=== PATIENT | male | born 1965 | race Caucasian/White ===

== ENCOUNTER → 2016-08-17 | Outpatient (CLI) | payer OTHER ==
[~2016-08-17] MED LIST: CHOL100010 PO; CITA20TA4 PO; CNT PO; QSTP PO
[2016-08-17 17:19] LABS: BLOOD UREA NITROGEN 6 mg/dl (7-18); BUN/CREATININE RATIO 7.5 (10-20); CALCIUM 8.3 mg/dl (8.5-10.1); CARBON DIOXIDE 27 mmol/L (21-32); CHLORIDE 104 mmol/L (98-107); CREATININE 0.84 mg/dl (0.60-1.40); GLUCOSE 81 mg/dl (70-99); POTASSIUM 3.8 mmol/L (3.5-5.1); SODIUM 139 mmol/L (136-145); URIC ACID 6.2 mg/dl (2.6-7.2)
== END | disposition home or self-care (01) ==
LOC: C.LABBFT 16:19
PROVIDERS: ATTEND Internal Medicine
DX: M10.9 Gout, unspecified (principal)

== ENCOUNTER 2020-01-24 17:47 | Inpatient (IN) ==
--- OUTSIDE RECORDS SUMMARY | 2020-01-24 17:49 | External Medical Summary | Continuity of Care Document ---
:1965 Author Name Yoselin Gallego Address Unavailable Unavailable , Care Team Providers Name Role Phone Rosalind Benton PA-C Unavailable [email or web address].D. Unavailable Unavailable ALYSSA DO, M Unavailable Unavailable Unavailable Unavailable Unavailable Problems Acute postoperative pain (338.18) (G89.18) Hypertension (401.9) (I10) Hypokalemia (276.8) (E87.6) Colonic obstruction (560.9) (K56.609) Leukocytosis (288.60) (D72.829) Diarrhea (787.91) (R19.7) Cough (786.2) (R05) Nausea (787.02) (R11.0) Abnormal blood chemistry (790.6) (R79.9) Colonic diverticular abscess (562.11) (K57.20) Abdominal pain (789.00) (R10.9) Depression (311) (F32.9) Protein malnutrition (260) (E46) Coagulopathy (286.9) (D68.9) Fatty liver (571.8) (K76.0) Anxiety (300.00) (F41.9) Vitamin D deficiency (268.9) (E55.9) Fistula (686.9) (L98.8) Pulmonary embolism (415.19) (I26.99) Cellulitis, abdominal wall (682.2) (L03.311) 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 Refills: 0 Procedures History of Colon Surgery Status: Complet ed History of Tonsillectomy Status: Complet ed Immunizations Immunizations not documented Family History Unknown Family Member Family history of diabetes mellitus (V18.0) Status: Active Comments: Family History (Z83.3) Family history of prostate cancer (V16.42) Status: Active Comments: Family History (Z80.42) Social History - Smoking Status Never smoked tobacco Plan of Treatment Planned Observations Planned Goals not documented Results No Known Results Results not documented
--- OUTSIDE RECORDS SUMMARY | 2020-01-24 17:49 | External Medical Summary | Continuity of Care Document ---
:1965 Author Name Yoselin Gallego Address Unavailable Unavailable , Care Team Providers Name Role Phone Rosalind Benton PA-C Unavailable [email or web address] M.D. Unavailable Unavailable ALYSSA DO M Unavailable Unavailable Unavailable Unavailable Unavailable Problems [...] Reactions No Known Drug Allergies (Allergy) Medications Multi Vitamin/Minerals TABS; TAKE 1 TABLET DAILY. Refills: 0 Indomethacin 25 MG Oral Capsule; TAKE 1 CAPSULE 3 time s daily PRN TAMMY Benton Quantity: 21 Refills: 0 Procedures History of Colon Surgery [...]
[2020-01-24] MEDS ORDERED: SODIUM CHLORIDE 0.9% 1000ML 1,000 ML IV ONE (18:18)
[2020-01-24] MEDS ORDERED: ONDANSETRON INJ 2 MG/ML 2 ML VIAL IV STA (18:18)
[2020-01-24] MEDS ORDERED: PROMETHAZINE 6.25 MG/50.25 ML BAG IV STA (18:18)
[2020-01-24] MEDS ORDERED: chlordiazePOXIDE HCl 25 MG CAP PO ONE (18:18)
[2020-01-24] MEDS ORDERED: LORazepam 1 MG/2 ML VIAL IV STA (18:18)
[2020-01-24] MEDS ORDERED: MULTI-VITAMIN INFUSION 10 ML, THIAMINE HCL 100 MG, FOLIC ACID 1 MG in SODIUM CHLORIDE 0... IV ONE (18:18)
[2020-01-24] MEDS ORDERED: cefTRIAXone SODIUM 1,000 MG/50 ML BAG IV STA (18:18)
--- NOTE | 2020-01-24 18:26 | Emergency Department Note ---
Impression & Plan Sepsis, Tachycardia, Acute dehydration, Vomiting, Alcohol withdrawal ED Provider Note NAME: CONCETTA RODRIGUES AGE: 54 SEX: M : 1965 ARRIVES VIA: Walk-In INFORMANT: [Patient] ED PROVIDER(S): [Galo Thompson MD] CHIEF COMPLAINT: Fever and weakness HISTORY OF PRESENT ILLNESS: The patient is a 54-year-old male who presents to the ER with 3 days of fever and flulike symptoms. Patient states that 2 weeks ago, he was bitten by a tick. Patient states that when he began to have flulike symptoms 3 days ago, he thought he may have Lyme. He went to urgent care yesterday and they did start doxycycline. His first dose was this morning. The patient states that he has fever, chills, shakes. He feels achy all over. He does not have any shortness of breath although he has a subtle cough. He has a colostomy and he has not noticed any diarrhea. He has had nausea and vomiting the last few days. He feels dehydrated. Of note, the patient has not had any alcohol for 3 days, he typically drinks about 8 beers a day. He thinks he may be going into some alcohol withdrawal. Of note, no known coronavirus exposures. REVIEW OF SYSTEMS: See HPI for pertinent positives and negatives. A total of ten systems were reviewed and were otherwise negative. PMHx/PSHx: See Below SOCIAL HISTORY: See Below. PHYSICAL EXAM: GENERAL: Patient is in mild distress, dry heaving, shaking. HEENT: No acute trauma, normocephalic atraumatic, mucous membranes dry, no nasal congestion, no scleral icterus. NECK: No stridor, no adenopathy, no meningismus, trachea is midline. LUNGS: Clear to auscultation bilaterally, no wheeze, no rhonchi, breath sounds equal. HEART: Tachycardic, regular rhythm, no murmurs. ABDOMEN: Soft, nontender, bowel sounds positive, no hernias, no peritonitis. Colostomy in the left mid abdomen. EXTREMITIES: No cyanosis or edema, full range of motion of all the joints without pain or difficulty, no signs for acute trauma. NEUROLOGIC: Oriented x 3, no acute motor or sensory deficits, no focal weakness. Trembling and shaking. SKIN: No rash, no jaundice, no diaphoresis. Groin: No scrotal erythema or rash. DIFFERENTIAL DIAGNOSIS: Sepsis, UTI, pneumonia, metabolic, electrolyte abnormalities, coronavirus, alcohol withdrawal, dehydration, cardiac sources, Lyme disease, anaplasmosis, intracerebral event, toxicologic, neurologic, as well as other pathologies. EMERGENCY DEPARTMENT COURSE/PROCEDURES: ECG: Indication was weakness and tachycardia. The EKG shows a sinus tachycardia. The rate is 115. There is no ST elevation, no PACs. There is some artifact present. The QTc is 431. Continuous Cardiac Monitoring: An order was placed for continuous cardiac monitoring. The monitor shows a rate of 112 with sinus tachycardia. Critical Care Note: I have personally spent greater than 52 minutes of critical care time in the direct management of this patient. This includes bedside care, interpretation of diagnostic studies, and testing, discussion with consultants, patient, and family members, and other required patient management activities. This 52 minutes is in excess of all separately billable procedures. MEDICAL DECISION MAKING: There is no leukocytosis or concerning anemia. The patient has a normal platelet count. INR slightly elevated at 1.2. There is no significant electrolyte abnormality or kidney failure. Lactic acid level is elevated at over 2, this is consistent with dehydration and/or infection. Procalcitonin level was elevated, consistent with infection. The patient does have liver enzyme elevations, likely from his alcohol abuse. The bilirubin was not elevated. EKG showed a sinus tachycardia, no acute ischemia. Cardiac enzyme testing x1 is not consistent with acute cardiac injury. Urinalysis does not show any evidence for infection, contamination was seen. Coronavirus test was performed and was negative. Lyme disease testing returned negative. Chest from did not show pneumonia or CHF. The patient presents tachycardic, shivery, off balance, weak, dehydrated and in apparent alcohol withdrawal. The patient was aggressively managed. He received IV saline for hydration. He was given IV saline mixed with multivitamins, thiamine and folate. He was given IV Phenergan for nausea. Patient received IV Zofran for nausea. He was given IV Ativan to help with his withdrawal. He was given a dose of oral Librium. He received IV ceftriaxone as empiric antibiotic coverage. The patient does seem to be improved. I discussed my results with him. I do think given all his findings, given his alcohol withdrawal, a hospital stay is warranted. The patient does meet criteria for sepsis. The source for the fever is currently unclear. Further work-up and care is required. The on-call hospitalist has been consulted. Case management has been involved. Past Med/Surg History Medical History Colonic obstruction (Acute 07/26/14) Pulmonary emboli (Acute) Social History Preferred Language: Icelandic Communication Ability: Effective Community Relations Officer Required: No Beliefs That Will Affect Care: None Current Living Situation: Spouse and Family Other Information That Helps Us Care for You: No Feels Safe at Home: Yes Safety Concerns: Feels Safe At This Time Smoking Status: Never smoker Hx Alcohol Use: Yes Alcohol type: beer Hx Substance Use: No Allergies Allergies Allergy/AdvReac Type Severity Reaction Status Date / Time No Known Allergies Allergy Verified 01/24/20 19:13 Home Meds Home Medications Medication Instructions Recorded Confirmed doxycycline hyclate 100 mg PO BID 01/24/20 01/24/20 Results & Data (ED) Vital Signs Vital Signs - 24 hr 01/24/20 17:51 01/24/20 18:04 01/24/20 18:45 Temperature 37.9 C H Temperature Source Oral Pulse Rate 121 H Pulse Rate from SpO2 Sensor Respiratory Rate 26 H 25 H Blood Pressure 117/74 118/87 Blood Pressure Mean 88 94 Blood Pressure Position Sitting Pulse Oximetry 96 95 97 Oxygen Delivery Method Room Air Room Air Room Air Sepsis Recent Fever Within 48 Hours No Sepsis Action Taken by Nursing No Action Required 01/24/20 18:58 01/24/20 19:00 01/24/20 19:02 Temperature Temperature Source Pulse Rate 117 H 116 H 113 H Pulse Rate from SpO2 Sensor Respiratory Rate 26 H 28 H 29 H Blood Pressure 100/78 116/78 Blood Pressure Mean 85 82 Blood Pressure Position Pulse Oximetry 91 95 91 Oxygen Delivery Method Sepsis Recent Fever Within 48 Hours Sepsis Action Taken by Nursing 01/24/20 19:13 01/24/20 19:15 01/24/20 19:16 Temperature Temperature Source Pulse Rate 113 H 112 H 121 H Pulse Rate from SpO2 Sensor 113 H 112 H 123 H Respiratory Rate 26 H 28 H 25 H Blood Pressure 118/79 114/78 Blood Pressure Mean 83 83 Blood Pressure Position Pulse Oximetry 98 96 91 Oxygen Delivery Method Sepsis Recent Fever Within 48 Hours Sepsis Action Taken by Nursing 01/24/20 19:30 01/24/20 19:31 01/24/20 19:45 Temperature Temperature Source Pulse Rate 116 H 110 H 111 H Pulse Rate from SpO2 Sensor 116 H 111 H 112 H Respiratory Rate 24 27 H 30 H Blood Pressure 120/85 119/83 Blood Pressure Mean 87 93 Blood Pressure Position Pulse Oximetry 96 99 98 Oxygen Delivery Method Sepsis Recent Fever Within 48 Hours Sepsis Action Taken by Nursing 01/24/20 20:00 01/24/20 20:15 01/24/20 20:30 Temperature Temperature Source Pulse Rate 116 H 107 H 106 H Pulse Rate from SpO2 Sensor 117 H 107 H 107 H Respiratory Rate 21 27 H 25 H Blood Pressure 118/77 100/66 104/67 Blood Pressure Mean 85 83 79 Blood Pressure Position Pulse Oximetry 98 97 96 Oxygen Delivery Method Sepsis Recent Fever Within 48 Hours Sepsis Action Taken by Nursing 01/24/20 20:31 01/24/20 20:45 01/24/20 21:00 Temperature Temperature Source Pulse Rate 107 H 104 H 105 H Pulse Rate from SpO2 Sensor 106 H 104 H 106 H Respiratory Rate 26 H 28 H 21 Blood Pressure 103/66 91/65 L Blood Pressure Mean 75 79 Blood Pressure Position Pulse Oximetry 95 95 95 Oxygen Delivery Method Sepsis Recent Fever Within 48 Hours Sepsis Action Taken by Nursing 01/24/20 21:15 01/24/20 21:30 01/24/20 21:45 Temperature Temperature Source Pulse Rate 97 H 125 H 98 H Pulse Rate from SpO2 Sensor 98 H 98 H Respiratory Rate 25 H 21 24 Blood Pressure 102/64 105/87 95/67 L Blood Pressure Mean 73 90 73 Blood Pressure Position Pulse Oximetry 96 95 Oxygen Delivery Method Sepsis Recent Fever Within 48 Hours Sepsis Action Taken by Care Home Medications Current Medication List: was personally reviewed by [place] Laboratory Data Attestation: I reviewed the patient's lab results. Result diagrams: 01/24/20 18:50 01/24/20 18:50 Lab Results 01/24/20 01/24/20 01/24/20 Range/Units 18:00 18:50 18:50 WBC 6.98 (4.8-10.8) K/uL RBC 4.82 (4.7-6.1) M/uL Hgb 16.3 (14.0-18.0) g/dL Hct 47.5 (42-52) % MCV 98.5 (80-100) fL MCH 33.8 (25-34) pg MCHC 34.3 (32-36) g/dL RDW Std Deviation 55.9 H (36.4-46.3) fL RDW Coeff of [place] 15.4 H (11.5-14.5) % Plt Count 217 (130-400) K/uL MPV 10.2 (7.4-10.4) fL Immature Gran % (Auto) 0.4 % Neut % (Auto) 85.0 % Lymph % (Auto) 10.0 % [place] % (Auto) 3.9 % Eos % (Auto) 0.0 % Baso % (Auto) 0.7 % Immature Gran # (Auto) 0.03 H (0.00-0.02) K/uL Neut # (Auto) 5.93 (1.4-6.5) K/uL Lymph # (Auto) 0.70 L (1.2-3.4) K/uL [place] # (Auto) 0.27 (0.11-0.59) K/uL Eos # (Auto) 0.00 (0-0.5) K/uL Baso # (Auto) 0.05 (0-0.2) K/uL PT 12.3 H (9.0-12.0) Seconds INR 1.2 H (0.9-1.1) APTT 27.0 (21.0-31.0) Seconds PTT Ratio 1.0 Sodium (136-145) mmol/L Potassium (3.5-5.1) mmol/L Chloride (98-107) mmol/L Carbon Dioxide (21-32) mmol/L Anion Gap (3-11) BUN (7-18) mg/dl Creatinine (0.6-1.4) mg/dl Est Cr Clr Drug Dosing ml/min Est GFR ( Amer) Est GFR (Non-Af Amer) BUN/Creatinine Ratio (10-20) Glucose (70-99) mg/dl Lactate (0.4-2.0) mmol/L Calcium (8.5-10.1) mg/dl Magnesium (1.8-2.4) mg/dl Total Bilirubin (0.2-1) mg/dl AST (15-37) U/L ALT (12-78) U/L Alkaline Phosphatase (45-117) U/L Troponin I (0-0.045) ng/ml Total Protein (6.4-8.2) gm/dl Albumin (3.4-5.0) gm/dl Globulin (2.5-4.0) gm/dl Albumin/Globulin Ratio (0.9-2) Procalcitonin (0-0.5) ng/ml Urine Color Dark Yellow Urine Appearance Clear (Clear) Urine pH 7.0 (4.5-7.5) Ur Specific [place] 1.023 (1.000-1.030) Urine Protein 2+ H (Negative) Urine Glucose (UA) Negative (Negative) Urine Ketones 1+ H (Negative) Urine Blood 2+ H (Negative) Urine Nitrite Negative (Negative) Urine Bilirubin 1+ H (Negative) Urine Urobilinogen Positive H (Negative) Ur Leukocyte Esterase Trace H (Negative) Urine WBC (Auto) 1-5 (0-5) /hpf Urine RBC (Auto) 10-30 H (0-4) /hpf U Hyaline Cast (Auto) 5-10 H (0-5) /lpf U Epithel Cells (Auto) >30 H (0-5) /lpf Urine Bacteria (Auto) Negative (Negative) Ethyl Alcohol mg/dL (0-3) mg/dl Lyme Disease IgG Ab (Negative) Lyme Disease IgM Ab (Negative) COVID-19 PCR (Negative) Hepatitis C Ab Screen (Neg) 01/24/20 01/24/20 01/24/20 Range/Units 18:50 18:50 18:50 WBC (4.8-10.8) K/uL RBC (4.7-6.1) M/uL Hgb (14.0-18.0) g/dL Hct (42-52) % MCV (80-100) fL MCH (25-34) pg MCHC (32-36) g/dL RDW Std Deviation (36.4-46.3) fL RDW Coeff of [place]ubia (11.5-14.5) % Plt Count (130-400) K/uL MPV (7.4-10.4) fL Immature Gran % (Auto) % Neut % (Auto) % Lymph % (Auto) % [place] % (Auto) % Eos % (Auto) % Baso % (Auto) % Immature Gran # (Auto) (0.00-0.02) K/uL Neut # (Auto) (1.4-6.5) K/uL Lymph # (Auto) (1.2-3.4) K/uL [place] # (Auto) (0.11-0.59) K/uL Eos # (Auto) (0-0.5) K/uL Baso # (Auto) (0-0.2) K/uL PT (9.0-12.0) Seconds INR (0.9-1.1) APTT (21.0-31.0) Seconds PTT Ratio Sodium 132 L (136-145) mmol/L Potassium 3.8 (3.5-5.1) mmol/L Chloride 99 (98-107) mmol/L Carbon Dioxide 24 (21-32) mmol/L Anion Gap 9.0 (3-11) BUN 10 (7-18) mg/dl Creatinine 0.92 (0.6-1.4) mg/dl Est Cr Clr Drug Dosing 99.6 ml/min Est GFR ( Amer) 108.1 Est GFR (Non-Af Amer) 93.3 BUN/Creatinine Ratio 11.1 (10-20) Glucose 103 H (70-99) mg/dl Lactate 2.5 H* (0.4-2.0) mmol/L Calcium 8.0 L (8.5-10.1) mg/dl Magnesium 2.0 (1.8-2.4) mg/dl Total Bilirubin 0.6 (0.2-1) mg/dl AST 306 H (15-37) U/L ALT 193 H (12-78) U/L Alkaline Phosphatase 162 H (45-117) U/L Troponin I < 0.015 (0-0.045) ng/ml Total Protein 8.1 (6.4-8.2) gm/dl Albumin 3.1 L (3.4-5.0) gm/dl Globulin 5.0 H (2.5-4.0) gm/dl Albumin/Globulin Ratio 0.6 L (0.9-2) Procalcitonin (0-0.5) ng/ml Urine Color Urine Appearance (Clear) Urine pH (4.5-7.5) Ur Specific [place] (1.000-1.030) Urine Protein (Negative) Urine Glucose (UA) (Negative) Urine Ketones (Negative) Urine Blood (Negative) Urine Nitrite (Negative) Urine Bilirubin (Negative) Urine Urobilinogen (Negative) Ur Leukocyte Esterase (Negative) Urine WBC (Auto) (0-5) /hpf Urine RBC (Auto) (0-4) /hpf U Hyaline Cast (Auto) (0-5) /lpf U Epithel Cells (Auto) (0-5) /lpf Urine Bacteria (Auto) (Negative) Ethyl Alcohol mg/dL < 3.0 (0-3) mg/dl Lyme Disease IgG Ab (Negative) Lyme Disease IgM Ab (Negative) COVID-19 PCR (Negative) Hepatitis C Ab Screen (Neg) 01/24/20 01/24/20 01/24/20 Range/Units 18:50 18:50 19:08 WBC (4.8-10.8) K/uL RBC (4.7-6.1) M/uL Hgb (14.0-18.0) g/dL Hct (42-52) % MCV (80-100) fL MCH (25-34) pg MCHC (32-36) g/dL RDW Std Deviation (36.4-46.3) fL RDW Coeff of Nubia (11.5-14.5) % Plt Count (130-400) K/uL MPV (7.4-10.4) fL Immature Gran % (Auto) % Neut % (Auto) % Lymph % (Auto) % [place] % (Auto) % Eos % (Auto) % Baso % (Auto) % Immature Gran # (Auto) (0.00-0.02) K/uL Neut # (Auto) (1.4-6.5) K/uL Lymph # (Auto) (1.2-3.4) K/uL [place] # (Auto) (0.11-0.59) K/uL Eos # (Auto) (0-0.5) K/uL Baso # (Auto) (0-0.2) K/uL PT (9.0-12.0) Seconds INR (0.9-1.1) APTT (21.0-31.0) Seconds PTT Ratio Sodium (136-145) mmol/L Potassium (3.5-5.1) mmol/L Chloride (98-107) mmol/L Carbon Dioxide (21-32) mmol/L Anion Gap (3-11) BUN (7-18) mg/dl Creatinine (0.6-1.4) mg/dl Est Cr Clr Drug Dosing ml/min Est GFR ( Amer) Est GFR (Non-Af Amer) BUN/Creatinine Ratio (10-20) Glucose (70-99) mg/dl Lactate (0.4-2.0) mmol/L Calcium (8.5-10.1) mg/dl Magnesium (1.8-2.4) mg/dl Total Bilirubin (0.2-1) mg/dl AST (15-37) U/L ALT (12-78) U/L Alkaline Phosphatase (45-117) U/L Troponin I (0-0.045) ng/ml Total Protein (6.4-8.2) gm/dl Albumin (3.4-5.0) gm/dl Globulin (2.5-4.0) gm/dl Albumin/Globulin Ratio (0.9-2) Procalcitonin 1.19 H (0-0.5) ng/ml Urine Color Urine Appearance (Clear) Urine pH (4.5-7.5) Ur Specific [place] (1.000-1.030) Urine Protein (Negative) Urine Glucose (UA) (Negative) Urine Ketones (Negative) Urine Blood (Negative) Urine Nitrite (Negative) Urine Bilirubin (Negative) Urine Urobilinogen (Negative) Ur Leukocyte Esterase (Negative) Urine WBC (Auto) (0-5) /hpf Urine RBC (Auto) (0-4) /hpf U Hyaline Cast (Auto) (0-5) /lpf U Epithel Cells (Auto) (0-5) /lpf Urine Bacteria (Auto) (Negative) Ethyl Alcohol mg/dL (0-3) mg/dl Lyme Disease IgG Ab Negative (Negative) Lyme Disease IgM Ab Negative (Negative) COVID-19 PCR NEGATIVE (Negative) Hepatitis C Ab Screen Neg (Neg) Administered Medications Folic Acid (Folvite) [facility] Stop: 02/23/20 23:54 Last Admin: 01/25/20 00:35 Dose: 1 mg Documented by: [id number] Potassium Chloride/Sodium Chloride (Normal Saline W/20 Meq Kcl) 20 meq in 1,000 mls @ 100 mls/hr IV .Q10H JEM Stop: 02/23/20 23:54 Last Admin: 01/25/20 00:25 Dose: 100 mls/hr Documented by: [id number] Thiamine HCl (Vitamin B-1) 100 mg PO QAM JEM Stop: 02/23/20 23:54 Last Admin: 01/25/20 00:35 Dose: 100 mg Documented by: [id number] Discontinued Medications Chlordiazepoxide HCl (Librium) 25 mg PO NOW ONE Stop: 01/24/20 18:19 Last Admin: 01/24/20 18:52 Dose: 25 mg Documented by: [id number] Gabapentin (Neurontin) 600 mg PO NOW ONE Stop: 01/24/20 23:56 Last Admin: 01/25/20 00:35 Dose: 600 mg Documented by: [id number] Sodium Chloride (Nss 1000ml) 1,000 mls @ 999 mls/hr IV .Q1H1M ONE Stop: 01/24/20 19:18 Last Infusion: 01/24/20 20:05 Dose: 0 mls/hr Documented by: [id number] Admin: 01/24/20 18:52 Dose: 999 mls/hr Documented by: [id number] Ceftriaxone Sodium (Rocephin) 1,000 mg in 50 mls @ 100 mls/hr IV NOW STA Stop: 01/24/20 18:47 Last Infusion: 01/24/20 20:05 Dose: 0 mls/hr Documented by: [id number] Admin: 01/24/20 19:49 Dose: 100 mls/hr Documented by: [id number] Multivitamins 10 ml/ Thiamine HCl 100 mg/ Folic Acid 1 mg/Sodium Chloride 1,011.2 mls @ 1,011.2 mls/hr IV .Q1H ONE Stop: 01/24/20 19:17 Last Infusion: 01/24/20 21:07 Dose: 0 mls/hr Documented by: [id number] Admin: 01/24/20 19:16 Dose: 1,011.2 mls/hr Documented by: [id number] Promethazine HCl (Phenergan) 6.25 mg in 50.25 mls @ 201 mls/hr IV NOW STA Stop: 01/24/20 18:32 Last Infusion: 01/24/20 19:21 Dose: 0 mls/hr Documented by: [id number] Admin: 01/24/20 18:52 Dose: 201 mls/hr Documented by: [id number] Lorazepam (Ativan) 1 mg in 2 mls @ 2 mls/min IV NOW STA Stop: 01/24/20 18:19 Last Admin: 01/24/20 18:52 Dose: 2 mls/min Documented by: [id number] Sodium Chloride (Nss) 500 mls @ 999 mls/hr IV .Q31M ONE Stop: 01/24/20 21:29 Last Infusion: 01/24/20 21:53 Dose: 0 mls/hr Documented by: [id number] Admin: 01/24/20 21:08 Dose: 999 mls/hr Documented by: [id number] Ondansetron HCl (Zofran) 4 mg IV NOW STA Stop: 01/24/20 18:19 Last Admin: 01/24/20 18:52 Dose: 4 mg Documented by: [id number] Imaging Data Radiologist's Impression: XR chest 1V portable HISTORY: 54 years-old Male SEPSIS acute sepsis COMPARISON: CTA of the chest 05/20/2015 TECHNIQUE: Portable AP view of the chest FINDINGS: Cardiomediastinal and hilar silhouettes are unchanged. No pneumothorax, pleural effusion, airspace consolidation or overt pulmonary edema. Mild convex right curvature of the midthoracic spine. Degenerative changes of the shoulders and spine. IMPRESSION: No acute process. Blood Pressure Blood Pressure Findings: Normal blood pressure Blood Pressure Disposition: further management by hospitalist Discharge Plan Visit Data *Final* Discharge Date/Time: 01/24/20 22:27 Chief Complaint: Fever Stated Complaint: FEVER, SHAKING, ILLNESS ED Provider: Galo Thompson Discharge Problem: Sepsis, Tachycardia, Acute dehydration, Vomiting, Alcohol withdrawal Patient Disposition: Admitted As Inpatient Condition: Fair Discharge Instructions Interventions: ED Discharge Assessment Last Done: 01/24/20 22:27 Discharge Problem: Sepsis Qualifiers: Sepsis type: sepsis due to unspecified organism Sepsis acute organ dysfunction status: without acute organ dysfunction Qualified Code(s): A41.9 - Sepsis, unspecified organism Vomiting Qualifiers: Vomiting type: unspecified Vomiting Intractability: non-intractable Nausea presence: with nausea Qualified Code(s): R11.2 - Nausea with vomiting, unspecified Alcohol withdrawal Qualifiers: Complication of substance-induced condition: uncomplicated Qualified Code(s): F10.230 - Alcohol dependence with withdrawal, uncomplicated
[2020-01-24 18:33] LABS: Appearance Urine Clear (Clear); Bacteria Urine Automated Negative (Negative); Bilirubin Urine 1+ (Negative); Blood Urine 2+ (Negative); Color Urine Dark Yellow; Epithelial Cell Urine Auto >30 /lpf (0-5); Glucose Urine UA Negative (Negative); Ictotest Urine Positive (Negative); Ketones Urine 1+ (Negative); Leukocyte Esterase Urine Trace (Negative); Nitrite Urine Negative (Negative); Protein Urine 2+ (Negative); Specific Gravity Urine 1.023 (1.000-1.030); Urobilinogen Urine Positive (Negative)
[2020-01-24 19:10] LABS: Basophils # (auto) 0.05 K/uL (0-0.2); Basophils % (auto) 0.7 %; Hematocrit (blood only) 47.5 % (42-52); Hemoglobin 16.3 g/dL (14.0-18.0); Immature Granulocytes # (auto) 0.03 K/uL (0.00-0.02); Immature Granulocytes % (auto) 0.4 %; Mean Corpuscular Hemoglobin 33.8 pg (25-34); Mean Corpuscular Hgb Conc 34.3 g/dL (32-36); Mean Corpuscular Volume 98.5 fL (80-100); Mean Platelet Volume 10.2 fL (7.4-10.4); Monocytes # (auto) 0.27 K/uL (0.11-0.59); Monocytes % (auto) 3.9 %; Neutrophils # (auto) 5.93 K/uL (1.4-6.5); Platelet Count 217 K/uL (130-400); RDW Coefficient of Variation 15.4 % (11.5-14.5); RDW Standard Deviation 55.9 fL (36.4-46.3); Red Blood Count 4.82 M/uL (4.7-6.1); White Blood Count 6.98 K/uL (4.8-10.8)
[2020-01-24 19:21] LABS: INR 1.2 (0.9-1.1); Prothrombin Time 12.3 Seconds (9.0-12.0)
[2020-01-24 19:31] LABS: Alanine Aminotransferase 193 U/L (12-78); Albumin Level 3.1 gm/dl (3.4-5.0); Aspartate Aminotransferase 306 U/L (15-37); BUN Creatinine Ratio 11.1 (10-20); Blood Urea Nitrogen 10 mg/dl (7-18); Carbon Dioxide 24 mmol/L (21-32); Chloride 99 mmol/L (98-107); Creatinine Clr Calc Pharmacy 99.6 ml/min; Est GFR (African American) 108.1; Est GFR (Non-African American) 93.3; Glucose 103 mg/dl (70-99); Potassium 3.8 mmol/L (3.5-5.1); Sodium 132 mmol/L (136-145)
--- NOTE | 2020-01-24 19:34 | XRay Report ---
XR chest 1V portable HISTORY: 54 years-old Male SEPSIS acute sepsis COMPARISON: CTA of the chest 05/20/2015 TECHNIQUE: Portable AP view of the chest FINDINGS: Cardiomediastinal and hilar silhouettes are unchanged. No pneumothorax, pleural effusion, airspace co nsolidation or overt pulmonary edema. Mild convex right curvature of the midthoracic spine. Degenerat fang changes of the shoulders and spine. IMPRESSION: No acute process. ACT 112: Negative or not required by law. The above report was generated using voice recognition software. It may contain grammatical, syntax o r spelling errors. Electronically signed by: Charlie Brown M.D. 01/24/2020 7:33 PM
[2020-01-24 19:35] LABS: Albumin Globulin Ratio 0.6 (0.9-2); Alkaline Phosphatase 162 U/L (45-117); Bilirubin,Total 0.6 mg/dl (0.2-1); Total Protein 8.1 gm/dl (6.4-8.2); Troponin I < 0.015 ng/ml (0-0.045)
[2020-01-24 19:49] LABS: Procalcitonin 1.19 ng/ml (0-0.5)
[2020-01-24 20:10] LABS: Lyme Ab IgG w/WB Rflx Negative (Negative); Lyme Ab IgM w/WB Rflx Negative (Negative)
[2020-01-24] MEDS ORDERED: SODIUM CHLORIDE 0.9% 500 ML IV ONE (20:59)
--- NOTE | 2020-01-24 23:00 | History & Physical Report ---
Date of Service January 24, 2020 Assessment & Plan (1) Alcohol withdrawal: Symptoms most likely due to alcohol withdrawal. Admit to monitored bed. AWSS protocol with gabapentin 600 mg load. NSS + KCl 20 mEq 100 mils per hour. Thiamine 100 mg p.o. daily, folic acid 1 mg p.o. daily and Nephrocaps daily. Zofran 4 mg IV every 6 hours PRN Famotidine 20 mg IV every 12 hours Present on Admission?: Yes (2) Alcoholic fatty liver: Liver ultrasound results pending. No previous laboratories for comparison. AST 306, ALT 193, alk phos 162. We will repeat laboratories in the morning, and check an INR. Present on Admission?: Yes (3) Acute dehydration: See above Present on Admission?: Yes History of Present Illness Chief Complaint: The patient presents to the emergency department with 3 days of fevers, chills, shakes and in general feeling achy all over. Primary Care Provider: Dane Nicholson MD The patient is a 54-year-old male with a past medical history including pulmonary emboli, colonic obstruction, sepsis, tachycardia, alcohol withdrawal, abdominal wall cellulitis, alcoholic fatty liver, diverticulosis and enterocutaneous fistula. He reports having a tick bite about 2 weeks ago, and was concerned that he might have Lyme disease, for which he presented to a local emergency care facility and was started on doxycycline this morning. He reports drinking alcohol on average 8 beers a day for years, and his last intake was 3 days ago, because he felt it was time to quit. He is concerned that he is going to alcohol withdrawal. He has not had any recent travels or sick exposures, including no exposures to COVID-19. He does have a colostomy and reports is functioning normally. 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 Beliefs That Will Affect Care: None Current Living Situation: Spouse and Family Other Information That Helps Us Care for You: No Feels Safe at Home: Yes Safety Concerns: Feels Safe At This Time Smoking Status: Never smoker Hx Alcohol Use: Yes Alcohol type: beer Hx Substance Use: No Review of Systems Review of Systems: The patient denies chest pain, shortness of breath, dyspnea on exertion, cough, lower extremity swelling, sore throat, fatigue, nausea, diarrhea , constipation, abdominal pain, pelvic pain, blood in urine or stool, dysuria, urinary frequency or urgency, memory loss, loss of consciousness, rash, abnormal bruising or bleeding, imbalance, focal or generalized weakness, or night sweats. The review of systems is otherwise negative other than for that already noted above, and at least 10 systems have been reviewed. Physical Exam Physical Exam: The patient is awake, alert and oriented 3, well developed and well nourished, normocephalic and atraumatic, lying in bed and in no acute distress. HEENT--PERRL, EOMI, mucous membranes and oropharynx dry. Neck--supple. No JVD. No bruits. Thyroid normal, trachea midline, no adenopathy. Heart--normal S1 and S2. No murmurs, rubs or gallops. Lungs--clear bilaterally, no respiratory distress, no accessory muscle use. Abdomen--normal bowel sounds and soft. Nontender. Nondistended. Colostomy noted Extremities--no cyanosis or clubbing. No edema. Dermatologic--normal skin turgor, normal color, no abnormal lymph nodes, no rash. Neurologic--cranial nerves II through XII grossly intact. Rheumatologic--normal range of motion. Psychiatric--normal affect. Results & Data Results & Data ([facility]) Vital Signs (Past 12 Hours) Vital Signs Temp Pulse Resp BP Pulse Ox 01/24/20 22:15 98 H 28 H 104/74 96 01/24/20 22:00 94 H 21 85/65 L 94 01/24/20 21:45 98 H 24 95/67 L 95 01/24/20 21:30 125 H 21 105/87 01/24/20 21:15 97 H 25 H 102/64 96 01/24/20 21:00 105 H 21 91/65 L 95 01/24/20 20:45 104 H 28 H 103/66 95 01/24/20 20:31 107 H 26 H 95 01/24/20 20:30 106 H 25 H 104/67 96 01/24/20 20:15 107 H 27 H 100/66 97 01/24/20 20:00 116 H 21 118/77 98 01/24/20 19:45 111 H 30 H 119/83 98 01/24/20 19:31 110 H 27 H 99 01/24/20 19:30 116 H 24 120/85 96 01/24/20 19:16 121 H 25 H 91 01/24/20 19:15 112 H 28 H 114/78 96 01/24/20 19:13 113 H 26 H 118/79 98 01/24/20 19:02 113 H 29 H 91 01/24/20 19:00 116 H 28 H 116/78 95 01/24/20 18:58 117 H 26 H 100/78 91 01/24/20 18:45 97 01/24/20 18:04 121 H 25 H 118/87 95 01/24/20 17:51 100.2 F H 26 H 117/74 96 Laboratory Results Laboratory Results WBC 6.98 K/uL (4.8-10.8) 01/24/20 18:50 RBC 4.82 M/uL (4.7-6.1) 01/24/20 18:50 Hgb 16.3 g/dL (14.0-18.0) 01/24/20 18:50 Hct 47.5 % (42-52) 01/24/20 18:50 MCV 98.5 fL (80-100) 01/24/20 18:50 MCH 33.8 pg (25-34) 01/24/20 18:50 MCHC 34.3 g/dL (32-36) 01/24/20 18:50 RDW Std Deviation 55.9 fL (36.4-46.3) H 01/24/20 18:50 RDW Coeff of Nubia 15.4 % (11.5-14.5) H 01/24/20 18:50 Plt Count 217 K/uL (130-400) 01/24/20 18:50 MPV 10.2 fL (7.4-10.4) 01/24/20 18:50 Immature Gran % (Auto) 0.4 % 01/24/20 18:50 Neut % (Auto) 85.0 % 01/24/20 18:50 Lymph % (Auto) 10.0 % 01/24/20 18:50 Real % (Auto) 3.9 % 01/24/20 18:50 Eos % (Auto) 0.0 % 01/24/20 18:50 Baso % (Auto) 0.7 % 01/24/20 18:50 Immature Gran # (Auto) 0.03 K/uL (0.00-0.02) H 01/24/20 18:50 Neut # (Auto) 5.93 K/uL (1.4-6.5) 01/24/20 18:50 Lymph # (Auto) 0.70 K/uL (1.2-3.4) L 01/24/20 18:50 Real # (Auto) 0.27 K/uL (0.11-0.59) 01/24/20 18:50 Eos # (Auto) 0.00 K/uL (0-0.5) 01/24/20 18:50 Baso # (Auto) 0.05 K/uL (0-0.2) 01/24/20 18:50 PT 12.3 Seconds (9.0-12.0) H 01/24/20 18:50 INR 1.2 (0.9-1.1) H 01/24/20 18:50 APTT 27.0 Seconds (21.0-31.0) 01/24/20 18:50 PTT Ratio 1.0 01/24/20 18:50 Sodium 132 mmol/L (136-145) L 01/24/20 18:50 Potassium 3.8 mmol/L (3.5-5.1) 01/24/20 18:50 Chloride 99 mmol/L (98-107) 01/24/20 18:50 Carbon Dioxide 24 mmol/L (21-32) 01/24/20 18:50 Anion Gap 9.0 (3-11) 01/24/20 18:50 BUN 10 mg/dl (7-18) 01/24/20 18:50 Creatinine 0.92 mg/dl (0.6-1.4) 01/24/20 18:50 Est Cr Clr Drug Dosing 99.6 ml/min 01/24/20 18:50 Est GFR ( Amer) 108.1 01/24/20 18:50 Est GFR (Non-Af Amer) 93.3 01/24/20 18:50 BUN/Creatinine Ratio 11.1 (10-20) 01/24/20 18:50 Glucose 103 mg/dl (70-99) H 01/24/20 18:50 Lactate 1.3 mmol/L (0.4-2.0) 01/25/20 00:07 Calcium 8.0 mg/dl (8.5-10.1) L 01/24/20 18:50 Magnesium 2.0 mg/dl (1.8-2.4) 01/24/20 18:50 Total Bilirubin 0.6 mg/dl (0.2-1) 01/24/20 18:50 AST 306 U/L (15-37) H 01/24/20 18:50 ALT 193 U/L (12-78) H 01/24/20 18:50 Alkaline Phosphatase 162 U/L (45-117) H 01/24/20 18:50 Troponin I < 0.015 ng/ml (0-0.045) 01/24/20 18:50 Total Protein 8.1 gm/dl (6.4-8.2) 01/24/20 18:50 Albumin 3.1 gm/dl (3.4-5.0) L 01/24/20 18:50 Globulin 5.0 gm/dl (2.5-4.0) H 01/24/20 18:50 Albumin/Globulin Ratio 0.6 (0.9-2) L 01/24/20 18:50 Procalcitonin 1.19 ng/ml (0-0.5) H 01/24/20 18:50 Urine Color Dark Yellow 01/24/20 18:00 Urine Appearance Clear (Clear) 01/24/20 18:00 Urine pH 7.0 (4.5-7.5) 01/24/20 18:00 Ur Specific [place] 1.023 (1.000-1.030) 01/24/20 18:00 Urine Protein 2+ (Negative) H 01/24/20 18:00 Urine Glucose (UA) Negative (Negative) 01/24/20 18:00 Urine Ketones 1+ (Negative) H 01/24/20 18:00 Urine Blood 2+ (Negative) H 01/24/20 18:00 Urine Nitrite Negative (Negative) 01/24/20 18:00 Urine Bilirubin 1+ (Negative) H 01/24/20 18:00 Urine Urobilinogen Positive (Negative) H 01/24/20 18:00 Ur Leukocyte Esterase Trace (Negative) H 01/24/20 18:00 Urine WBC (Auto) 1-5 /hpf (0-5) 01/24/20 18:00 Urine RBC (Auto) 10-30 /hpf (0-4) H 01/24/20 18:00 U Hyaline Cast (Auto) 5-10 /lpf (0-5) H 01/24/20 18:00 U Epithel Cells (Auto) >30 /lpf (0-5) H 01/24/20 18:00 Urine Bacteria (Auto) Negative (Negative) 01/24/20 18:00 Ethyl Alcohol mg/dL < 3.0 mg/dl (0-3) 01/24/20 18:50 Lyme Disease IgG Ab Negative (Negative) 01/24/20 18:50 Lyme Disease IgM Ab Negative (Negative) 01/24/20 18:50 COVID-19 PCR NEGATIVE (Negative) 01/24/20 19:08 Hepatitis C Ab Screen Neg (Neg) 01/24/20 18:50 Diagnostic Findings [place], [place] [phone] XRay Report Patient: CONCETTA RODRIGUESAdmit Date: 01/24/20 MR#: [id number]: [address] Acct ID:[id number]: Date: 1965[facility] Zip: [place] [address] Age: 54Location: Sex: M Room/Bed: Att Phy:Diagnosis: FEVER, SHAKING, ILLNESS Nikia Phy: Dane Nicholson MDService Date: 01/24/20 Fam Phy:Interpreting Phy: Renato Brown Admit Phy: Ordering Phy: Galo Thompson M.D. cc: ~ XR chest 1V portable HISTORY: 54 years-old Male SEPSIS acute sepsis COMPARISON: CTA of the chest 05/20/2015 TECHNIQUE: Portable AP view of the chest FINDINGS: Cardiomediastinal and hilar silhouettes are unchanged. No pneumothorax, pleural effusion, airspace consolidation or overt pulmonary edema. Mild convex right curvature of the midthoracic spine. Degenerative changes of the shoulders and spine. IMPRESSION: No acute process. ACT 112: Negative or not required by law. The above report was generated using voice recognition software. It may contain grammatical, syntax or spelling errors. Electronically signed by: Charlie Brown M.D. 01/24/2020 7:33 PM Dictated: 01/24/201931 Transcribed: 01/24/201931 Code Status & VTE Plan Code Status Full code VTE Prophylaxis Plan VTE Prophylaxis will be ordered: Yes PG Care Time/CCT Total # of Minutes Spent Total Time Spent with Patient: Total time spent is greater than 50% in coordination of care (as documented) at patient's floor/unit and/or counseling patient: Coding Level of Care Code 18936 Initial Inpt Care Lvl 2 Diagnoses Alcohol withdrawal F10.230 Complication of substance-induced condition: uncomplicated Alcoholic fatty liver K70.0 Acute dehydration E86.0 (1) Alcohol withdrawal Complication of substance-induced condition: uncomplicated Qualified Code(s): F10.230 - Alcohol dependence with withdrawal, uncomplicated
[2020-01-24] MEDS ORDERED: GABAPENTIN 600MG ALCOHOL WITHDRAWAL LOAD PO STA (23:55)
[2020-01-24] MEDS ORDERED: GABAPENTIN 600 MG TAB PO ONE (23:55)
[2020-01-24] MEDS ORDERED: ATIVAN IV ALCOHOL WITHDRAWL IV PRN (23:55)
[2020-01-24] MEDS ORDERED: ONDANSETRON INJ 2 MG/ML 2 ML VIAL IV PRN (23:55)
[2020-01-24] MEDS ORDERED: LORazepam 2 MG/4 ML VIAL IV PRN (23:55)
[2020-01-24] MEDS ORDERED: LORazepam 1 MG/2 ML VIAL IV PRN (23:55)
[2020-01-24] MEDS ORDERED: ALUMINUM/MAGNESIUM SUSP 30 ML UDC PO PRN (23:55)
[2020-01-24] MEDS ORDERED: LORazepam 3 MG/6 ML VIAL IV PRN (23:55)
[2020-01-24] MEDS ORDERED: MAGNESIUM HYDROXIDE SUSP 30 ML UDC PO PRN (23:55)
[2020-01-25] MEDS: NSS + 20MEQ KCL 20 MEQ/1,000 ML BAG IV SCH ×2 (00:25→10:50)
[2020-01-25] MEDS: FOLIC ACID 1 MG TAB PO SCH ×2 (00:35→09:21)
[2020-01-25] MEDS: THIAMINE HCL 100 MG TAB PO SCH ×2 (00:35→09:21)
[2020-01-25] MEDS: FAMOTIDINE 20 MG in SYRINGE 3 ML IV SCH ×2 (02:00→09:45)
[2020-01-25] MEDS: GABAPENTIN 100 MG CAP PO SCH ×2 (06:26→11:42)
--- NOTE | 2020-01-25 06:57 | Electrocardiogram Report ---
Test Reason : Blood Pressure : / mmHG Vent. Rate : 115 BPM Atrial Rate : 115 BPM P-R Int : 150 ms QRS Dur : 086 ms QT Int : 312 ms P-R-T Axes : 041 037 065 degrees QTc Int : 431 ms Sinus tachycardia Otherwise normal ECG When compared with ECG of 20-MAY-2015 09:06, Vent. rate has increased BY 63 BPM Confirmed by Deon Whitlock ([id number]) on 01/25/2020 6:57:36 AM Referred By: REFERRED SELF Confirmed By:Deon Whitlock
--- NOTE | 2020-01-25 08:22 | Ultrasound Report ---
US liver CLINICAL HISTORY: abnormal lft's COMPARISON STUDY: CT of the abdomen and pelvis June 27, 2015. FINDINGS: Liver is mildly enlarged. The liver is mildly echogenic. Note is made of an 8 mm echogenic left hepatic lobe focus. This may reflect a hemangioma. There is no biliary ductal dilatation. Multip le gallstones within the gallbladder are noted. There is moderate gallbladder wall thickening. The ga llbladder wall measures 6 mm in thickness. No sonographic Deleon sign was reported. A normal. Head an d tail are partially obscured. There is no right hydronephrosis. IMPRESSION: 1. Cholelithiasis. Moderate gallbladder wall thickening, a nonspecific finding. The findings are not strongly suggestive of acute cholecystitis given the lack of sonographic Deleon sign although a hepat obiliary scan could be obtained if indicated. 2. No biliary ductal dilatation. 3. Probable fatty infiltration of the liver. Mild hepatomegaly. ACT 112: Negative or not required by law. Electronically signed by: Max Chavarria M.D. 01/25/2020 8:20 AM
[2020-01-25] MEDS ORDERED: ENOXAPARIN INJ 40 MG/0.4 ML SYR SQ SCH (09:00)
[2020-01-25 09:24] LABS: Basophils # (auto) 0.16 K/uL (0-0.2); Basophils % (auto) 2.9 %; Eosinophils # (auto) 0.02 K/uL (0-0.5); Eosinophils % (auto) 0.4 %; Hematocrit (blood only) 40.9 % (42-52); Hemoglobin 13.4 g/dL (14.0-18.0); Immature Granulocytes # (auto) 0.01 K/uL (0.00-0.02); Immature Granulocytes % (auto) 0.2 %; Lymphocytes % (auto) 32.3 %; Mean Corpuscular Hemoglobin 32.8 pg (25-34); Mean Corpuscular Hgb Conc 32.8 g/dL (32-36); Mean Corpuscular Volume 100.2 fL (80-100); Mean Platelet Volume 10.3 fL (7.4-10.4); Monocytes # (auto) 0.74 K/uL (0.11-0.59); Monocytes % (auto) 13.3 %; Neutrophils # (auto) 2.84 K/uL (1.4-6.5); Neutrophils % (auto) 50.9 %; Platelet Count 182 K/uL (130-400); RDW Coefficient of Variation 16.1 % (11.5-14.5); RDW Standard Deviation 58.6 fL (36.4-46.3); Red Blood Count 4.08 M/uL (4.7-6.1); White Blood Count 5.57 K/uL (4.8-10.8)
[2020-01-25 09:30] LABS: INR 1.2 (0.9-1.1); Partial Thromboplastin Ratio 1.3; Partial Thromboplastin Time 35.3 Seconds (21.0-31.0); Prothrombin Time 12.1 Seconds (9.0-12.0)
[2020-01-25 09:44] LABS: Albumin Level 2.3 gm/dl (3.4-5.0); BUN Creatinine Ratio 11.7 (10-20); Calcium 7.5 mg/dl (8.5-10.1); Creatinine Clr Calc Pharmacy 122.1 ml/min; Est GFR (African American) 119.7; Est GFR (Non-African American) 103.3; Magnesium 2.2 mg/dl (1.8-2.4); Potassium 4.1 mmol/L (3.5-5.1)
[2020-01-25 10:05] LABS: Albumin Globulin Ratio 0.6 (0.9-2); Bilirubin,Total 0.5 mg/dl (0.2-1); Globulin 3.8 gm/dl (2.5-4.0); Total Protein 6.1 gm/dl (6.4-8.2)
[2020-01-25] MEDS ORDERED: chlordiazePOXIDE HCl 25 MG CAP PO ONE (12:45)
--- NOTE | 2020-01-25 13:07 | Discharge Summary ---
Date of Service January 25, 2020 Admission HPI Per Admitting Provider The patient is a 54-year-old male with a past medical history including pulmonary emboli, colonic obstruction, sepsis, tachycardia, alcohol withdrawal, abdominal wall cellulitis, alcoholic fatty liver, diverticulosis and enterocutaneous fistula. He reports having a tick bite about 2 weeks ago, and was concerned that he might have Lyme disease, for which he presented to a local emergency care facility and was started on doxycycline this morning. He reports drinking alcohol on average 8 beers a day for years, and his last intake was 3 days ago, because he felt it was time to quit. He is concerned that he is going to alcohol withdrawal. He has not had any recent travels or sick exposures, including no exposures to COVID-19. He does have a colostomy and reports is functioning normally. Admission Exam Per Admitting Provider The patient is awake, alert and oriented 3, well developed and well nourished, normocephalic and atraumatic, lying in bed and in no acute distress. HEENT--PERRL, EOMI, mucous membranes and oropharynx dry. Neck--supple. No JVD. No bruits. Thyroid normal, trachea midline, no adenopathy. Heart--normal S1 and S2. No murmurs, rubs or gallops. Lungs--clear bilaterally, no respiratory distress, no accessory muscle use. Abdomen--normal bowel sounds and soft. Nontender. Nondistended. Colostomy noted Extremities--no cyanosis or clubbing. No edema. Dermatologic--normal skin turgor, normal color, no abnormal lymph nodes, no rash. Neurologic--cranial nerves II through XII grossly intact. Rheumatologic--normal range of motion. Psychiatric--normal affect. Principal Diagnosis Alcohol Withdrawal Discharge Exam General: In NAD Neuro: A&O x 4, mild hand tremors noted, CN 2-12 intact, strength 5/5 bilateral upper and lower extremities, sensation intact bilateral upper and lower extremities Pulm: CTAB equal breath sounds bilaterally CV: RRR, no m/r/g Abdomen:+BS, no TTP in all quadrants, non-distended, colostomy noted (normal outpt) no surrounding erythema LE: no LE edema, no calf TTP Skin: erythematous papule L inner groin region (site of tick bite 2 weeks ago) without spreading erythema Discharge Data Allergies Allergy/AdvReac Type Severity Reaction Status Date / Time No Known Allergies Allergy Verified 01/24/20 19:13 Consultations 01/24/20 20:03 ED Decision to Admit Stat 01/24/20 23:55 Consult Case Management - Discharge Planning Routine Ordered Studies 01/24/20 21:52 US liver Routine Hospital Course (1) Alcohol withdrawal: Etoh < 3; last drink was 5 days ago Received gabapentin, IVFs, thiamine and folic acid, zofran and famotidine to help with symptoms Minimal symptoms on day of discharge Discharged on Librium taper 25mg daily x 1 day then 10mg daily x 2 days; folate and thiamine supplements Follow up with PCP next week Given resources for outpatient rehab as pt very motivated and expressed desire to quit drinking due to poor health (2) Alcoholic fatty liver: Noted on abdominal US LFT: AST 306, ALT 193, alk phos 162, alb 3.1 INR 1.2 (3) Cholelithiasis: Noted on US of liver on 01/24/20, no concern for cholecystitis at this time (4) Colostomy in place: Functioning well with baseline output (5) Tick bite: CBC wnl Lyme negative EKG: sinus tach 115 Qtc 431 Negative neurologic assessment, no rashes and no cardiac symptoms at this time Advised to follow up wit PCP or return to the ED if develops fever, neurologic symptoms, chest pain or any other concerning symptoms as may need treatment for tick borne illnesses; not needed at this time given lack of symptoms and reassuring exam findings Total Time Total Time Spent Total Time Spent (In Minutes): <30 mins Discharge Plan Discharge Items Patient Disposition: Home - Self-Care Reason For Visit: ALCOHOL WITHDRAWAL Discharge Diagnosis: Alcohol Withdrawal Condition on Discharge: Fair Activity: Resume your previous activity Non-emergency contact: Primary Care Provider Call non-emergency contact if: you have any medication questions, your symptoms worsen and you have a fever Follow-up/Referrals: Jeffry Nicholson MD [Primary Care Provider] - (Please call your PCP's office to schedule a follow up appt. [phone]) Diet: Regular Addtl Attending Provider Instructions: Mr. Núñez you were admitted for concern of chills/shakes and body aches which was concerning for alcohol withdrawal given your last drink was on Monday and you were attempting to quit which we applaud you for. Your withdrawal was treated and your symptoms improved prior to discharge. Your work up was reassuring however your liver ultrasound and labs were concerning for most likely alcohol related changes called fatty liver disease which leads to cirrhosis (liver failure). As we discussed, we highly recommend you abstain from drinking alcoholic beverages as it can progress your liver disease and eventually cause cirrhosis. You stressed you were ready to quit and we provided you with outpatient rehab resources. You will also need to follow up with your primary care doctor, Dr. Nicholson. An appointment has been requested on your behalf please follow up. Additionally, to help you with withdrawal symptoms and to abstain from drinking we sent to the pharmacy a medication called Chlordiazepoxide (Librium). You will need to take 1 capsule tomorrow, 01/25 of the 25mg dose. Then take 1 capsule of 10mg dose once a daily on the following 2 days, 01/26 and 01/27. Please note that this medication can be sedating so please do not operate any machinery or drive while on this medication As alcohol can also interfere with absorption of vitamin B1 and folate. We send prescriptions for these vitamins to be taken daily to your pharmacy. Summary: Start taking Vitamin B1 (Thiamine) 100mg daily (1 pill) Take Folate 1mg daily (1 pill) Take: Chlordiazepoxide (Librium) 25mg dose 1 pill tomorrow, 01/25 Take Chlordiazepoxide (Librium) 10mg dose 1 pill daily on 01/26 and 01/[address] Nicholson next week Call and arrange for outpatient rehab based on information provided by case management Pending Studies at Discharge: Yes Studies:: Blood culture Stand-Alone Forms: [facility], Smoking Cessation Medications and DC Order Prescriptions: New thiamine HCl (vitamin B1) [Vitamin B-1] 100 mg Tablet 100 mg PO QAM Qty: 30 RF: 1 folic acid 1 mg Tablet 1 mg PO QAM Qty: 30 RF: 1 chlordiazepoxide HCl 25 mg capsule 25 mg PO ONCE Qty: 1 RF: 0 chlordiazepoxide HCl 10 mg capsule 10 mg PO UD Qty: 2 RF: 0 Discontinued doxycycline hyclate 100 mg Tablet 100 mg PO BID RF: 0 Discharge Orders: Discharge Order (Routine); Ordered 01/25/20 Ordered By: Gigi Julio Admission Data Admit Date/Time: 01/24/20 21:54 Attending Provider: Olivier Reich Admit Provider: Sebastian Garcia Primary Care Provider: Jeffry Nicholson Other Providers: Sebastian Garcia Other Interventions: Discharge Summary Assessment (RN) Last Done: 01/25/20 13:06 DC Date/Time DO NOT enter until pt leaves facility: 01/25/20 14:35 Supervising Physician Co-Signing Physician Notes I personally examined the patient and verified all chowdhury points of history and exam, discussed case, and agree with decision making with Dr Julio. feeling better feeling ok to go home. applauded desire to quit and reviewed an overview what types of resources we have in the area vitals noted nad heent nc at mmm breathing unlabored no accessory muscles good effort skin no rashes no pallor or icterus neuro no focal deficits EtOH abuse - fortunately no serious withdrawal - does feel somewhat lousy but is >3days since last drink without serious s/s -- safe for home transaminitis - almost certainly EtOH related - but fortunately bili good, INR only nominally up at 1.2, and imaging more c/w fatty liver than cirrhosis. serial LFTs as outpt tick bite - no s/s active infection. if he were to develop a fever then further w/u or treatment for anaplasmosis or babesiosis should be entertained (saima since lyme negative) - but unlikely to occur stable for home, otherwise as above Resident Activity Tracking Resident Involvement: Resident Care Provided Care Provided: Adult Hospital Medicine
--- NOTE | 2020-01-25 17:12 | Billing Data ---
Date of Service January 25, 2020 Coding Level of Care Code D/C Day Management <30 mins
[2020-01-26] MEDS ORDERED: GABAPENTIN 600 MG TAB PO SCH (12:00)
[2020-01-27] MEDS ORDERED: GABAPENTIN 400 MG CAP PO SCH (12:00)
[2020-01-28] MEDS ORDERED: GABAPENTIN 100 MG CAP PO SCH (12:00)
== END 2020-01-25 14:35 | disposition home or self-care (01) | DRG 897 ==
LOC: ED 17:47 → 2N 21:46 → SUATTDRO 21:46 → 2N 22:27

== ENCOUNTER 2025-06-06 16:43 | Inpatient (IN) ==
--- NOTE | 2025-06-06 17:21 | Emergency Department Note ---
Impression & Plan Cellulitis of right hand, Right forearm cellulitis, History of gout, History of seizure due to alcohol withdrawal ED Provider Note CHIEF COMPLAINT: Hand infection HISTORY OF PRESENTING ILLNESS: This 59-year-old male patient presents the emergency department with his for evaluation of a right hand infection. The patient states that the symptoms started 5 days ago in his right middle finger. He now has redness and swelling to most of his hand and into his arm. The patient states he saw his PCP who sent him to the ER. He has not had any fevers. He denies any known injury or trauma recently. No known insect bites, but he was out in the garden before the symptoms started. The patient states that he was also bit by a spider on his right ring finger in March 2025 - they think it might have been a brown recluse spider. He states that it "got filled with pus," but ended up popping on its own and then resolving. However, it caused a lot of his skin to slough off per patient. His finger and hand fully resolved after the initial spider bite. He also has a history of gout. He is not sure about his last tetanus shot. No fevers. No discharge from the wound this time. Having pain in his hand and having trouble straightening his fingers from the pain and swelling. Denies numbness or tingling. He is not currently on medication for gout because he cannot tolerate the allopurinol. He is not on any blood thinners. The patient typically drinks 1/2-3/4 of a pint of alcohol a day. However, the patient has not had any alcohol since 9 PM last night. The patient has a history of withdrawal in the past with 1 withdrawal seizure when he quit cold turkey. However, he currently denies any withdrawal symptoms. REVIEW OF SYSTEMS: See HPI for pertinent positives and pertinent negatives. ALLERGIES: NKDA MEDICATIONS: See below PAST MEDICAL HISTORY: See below PHYSICAL EXAM: VITALS: Vitals are noted on the nurse's note and reviewed by myself. GENERAL: Non toxic, in no acute distress, non-diaphoretic. SKIN: The patient has erythema, warmth, and significant edema to the majority of the right hand, but worse centered over the third MCP joint and 2nd, 3rd, and 4th metacarpals. The erythema and edema extends up to the proximal forearm, but does not include the elbow. The edema is not as significant along the forearm. The patient has a scab over the radial aspect of the right forearm, but no obvious open wounds, scabs, or source of infection to his hand or fingers. No fluctuance, pointing, or discharge. No lymphatic streaking. No vesicles, pustules, petechiae, or purpura. The erythema is blanching. Capillary refill <2 sec. EYES: PERRLA. EOMI. Conjunctivae without injection, sclerae without icterus. NOSE: Patent without discharge. MOUTH: Mucous membranes moist. Uvula midline. Airway patent. NECK: Supple without nuchal rigidity. HEART: Regular rate and rhythm without murmurs gallops or rubs. LUNGS: Clear to auscultation bilaterally without wheezes, rales or rhonchi. No retractions or accessory muscle use. MUSCULOSKELETAL: See skin exam. The patient is still able to move his fingers of the right hand, but it is painful and difficult due to the swelling and infection. No obvious evidence for septic arthritis. He is able to move the right wrist with mild discomfort. Full range of motion of the right elbow without pain. Normal sensation to light and sharp touch of the entire right upper extremity including the right hand. Radial pulse 2+. NEURO: Patient was alert and oriented. No focal neurological deficits. DIFFERENTIAL DIAGNOSIS: Differential diagnosis includes cellulitis, abscess, MRSA infection, DVT, SVT, necrotizing fasciitis, septic arthritis, osteomyelitis, tenosynovitis, dermatitis, drug eruption, allergic reaction, as well as other pathologies. ED COURSE AND MEDICAL DECISION MAKING: HISTORY FROM INDEPENDENT HISTORIAN: Additional history obtained from the patient's MEDICATIONS GIVEN: 500 mL normal saline solution bolus. Tylenol 1000 mg IV. Tetanus booster. Rocephin 2 g IV. Vancomycin 1.5 g IV. MONITOR: Continuous monitoring coordinator: Order was placed for continuous monitoring coordinator. Patient was placed on the monitoring coordinator and continuous pulse ox. Patient was noted to be in normal sinus rhythm at an initial rate of 62 bpm per my interpretation. INTERPRETATION OF LABS: I interpreted the labs with full lab results as below in the lab section of this note. Laboratory results pertinent to the emergent complaint are discussed in the MDM section below. The patient was advised to follow up with their PCP and/or specialist(s) for further outpatient monitoring and management of any abnormal results. INTERPRETATION OF IMAGING: Imaging studies were interpreted by myself and read by radiology as per the imaging section of this note. The patient was advised to follow up with their PCP and/or specialist(s) for further outpatient management of any non-emergent abnormal findings. X-rays of the right hand showed mild nonspecific diffuse soft tissue swelling with superimposed focal region along the dorsal metatarsals. No discrete soft tissue gas or radiopaque foreign body. X-rays of the right forearm show small superficial soft tissue calcification along the proximal dorsal forearm. Just ventral to this area is an area of nonspecific soft tissue swelling. No discrete soft tissue gas. Prominent soft tissues overlying the olecranon with olecranon osteophyte. Olecranon bursitis is not excluded. Vascular calcifications. No discrete destructive osseous or joint process. CHRONIC MEDICAL/SOCIAL CONDITIONS AFFECTING CARE: Alcohol use disorder with history of withdrawal CONSULTATIONS: On-call hospitalist MDM SUMMARY: The patient was seen during a time of extreme volume and extreme acuity. Nursing triage protocols were initiated with IV lock, labs, and/or imaging studies conducted by protocol in the triage area. The patient was initially evaluated in a triage room and then re-evaluated once they were taken back to an exam room. The patient states that he was bit by a spider to the right ring finger in March and had an infection, but that infection resolved fully. 5 days ago he was working in the garden again, but does not remember any particular injury or bite. He then started with redness and swelling to the right hand that is now extending up his arm. He denies any fevers or discharge from the area. He is having pain and difficulty moving his fingers because of the swelling and pain. On exam, the patient does have significant erythema and edema to the right hand that extends up to the right forearm. The patient was given 500 mL normal saline solution bolus and Tylenol 1000 mg IV with good improvement of his discomfort. I reviewed [facility] outpatient records as well as [facility] records and he has not been given a recent tetanus shot. Therefore, he was given a tetanus booster. The patient was given IV Rocephin and IV vancomycin after blood cultures were drawn. Lactate and procalcitonin were normal. White blood cell count elevated at 13.70. Hemoglobin normal at 15.6. Platelet count normal at 283. ESR elevated at 76 and CRP elevated at 6.87. Uric acid level slightly elevated at 7.7. Sodium 135, glucose 104, alk phos 134, but CMP otherwise without concerning abnormalities. Magnesium normal. Coags were normal. Blood cultures are pending. X-rays of the right hand showed mild nonspecific diffuse soft tissue swelling with superimposed focal region along the dorsal metatarsals. No discrete soft tissue gas or radiopaque foreign body. X-rays of the right forearm show small superficial soft tissue calcification along the proximal dorsal forearm. Just ventral to this area is an area of nonspecific soft tissue swelling. No discrete soft tissue gas. Prominent soft tissues overlying the olecranon with olecranon osteophyte. Olecranon bursitis is not excluded. Vascular calcifications. No discrete destructive osseous or joint process. The patient has a significant cellulitis to the right hand and forearm. No obvious evidence for abscess. The patient has had symptoms for the past 5 days and on exam and his symptoms and workup findings do not seem consistent with necrotizing fasciitis. There was initial concern for possible septic arthritis or tenosynovitis due to his decreased range of motion and increased pain with range of motion. However, the patient actually had improvement of his edema after elevation of the hand/arm as well as ice and to the patient states that his pain has decreased as the edema decreased and he also had better range of motion with the decrease in the edema. Therefore, lower suspicion for septic arthritis or tenosynovitis. The patient also has a history of gout with a slightly elevated uric acid level, but the exam findings are more consistent with cellulitis rather than gout. The patient typically drinks 1/2-3/4 of a pint of alcohol a day. However, the patient has not had any alcohol since 9 PM last night. The patient has a history of withdrawal in the past with 1 withdrawal seizure when he "quit cold turkey." However, he currently denies any withdrawal symptoms. The patient's AWSS was 2. Therefore, no medications were given in the ER. However, he was monitored closely for any withdrawal symptoms. The patient will require admission for IV antibiotics and further evaluation and treatment of his cellulitis. I spoke with the on-call hospitalist who agreed to admit the patient for further management. Please refer to their dictation for further details. The patient's care was transferred in stable condition. DIAGNOSIS: Right hand and forearm cellulitis History of gout History of alcohol withdrawal Past Med/Surg History Problem List (Updated 06/06/25 @ 22:10 by Jaz Brooks PA-C) History of seizure due to alcohol withdrawal (Acute) History of gout (Acute) Right forearm cellulitis (Acute) Cellulitis of right hand (Acute) Tick bite Colostomy in place Alcohol withdrawal (Acute) Vomiting (Acute) Acute dehydration (Acute) Tachycardia (Acute) Sepsis (Acute) Pulmonary emboli (Acute) Enterocutaneous fistula (Acute) Diverticula of colon (Acute 08/05/14) Cholelithiasis (Acute) Alcoholic fatty liver (Acute) Abdominal wall cellulitis (Acute) Colonic obstruction (Acute 07/26/14) Medical History Alcohol withdrawal Alcoholic fatty liver Colonic obstruction (07/26/14) Colostomy in place Pulmonary emboli Family History Other Family history non-contributory Social History Smoking Status: Never smoker Hx Alcohol Use: Yes Alcohol type: beer Hx Substance Use: No Preferred Language: Bangladeshi Communication Ability: Effective Slat Pickler Required: No Beliefs That Will Affect Care: None marital status: Current Living Situation: Spouse and Family Feels Safe at Home: Yes Assistive Devices: Glasses Allergies Allergies Allergy/AdvReac Type Severity Reaction Status Date / Time No Known Allergies Allergy Verified 06/06/25 20:49 Home Meds Home Medications Medication Instructions Recorded Confirmed acetaminophen 325 mg tablet 325 mg PO Q8H PRN Pain 06/06/25 06/06/25 (Tylenol) naproxen sodium 220 mg tablet 220 mg PO DAILY PRN Pain 06/06/25 06/06/25 (Aleve) Results & Data (ED) Vital Signs Vital Signs - 24 hr 06/06/25 16:47 06/06/25 19:32 Temperature 37 C Temperature Source Temporal Artery Scan Pulse Rate 65 55 L Respiratory Rate 18 Respiratory Effort / Characteristics Non-Labored Spontaneous Respiratory Depth Normal Respiratory Pattern Regular Blood Pressure 174/91 H Blood Pressure Mean 118 Blood Pressure Position Sitting Pulse Oximetry 100 Oxygen Delivery Method Room Air Sepsis Recent Fever Within 48 Hours No Sepsis New/Unexplained Change in Mental Status No Sepsis Action Taken by Nursing No Action Required Laboratory Data 06/06/25 17:46 06/06/25 17:46 Lab Results 06/06/25 06/06/25 Range/Units 17:46 18:40 WBC 13.70 H (4.8-10.8) K/ul RBC 4.54 L (4.70-6.10) M/uL Hgb 15.6 (14.0-18.0) g/dl Hct 45.8 (42.0-52.0) % MCV 100.9 H (80.0-100.0) fL MCH 34.4 H (25.0-34.0) pg MCHC 34.1 (32.0-36.0) g/dL RDW Std Deviation 61.2 H (36.4-46.3) fL RDW Coeff of Nubia 16.5 H (11.5-14.5) % Plt Count 283 (130-400) K/uL MPV 9.8 (9.4-12.4) fL Neutrophils % (Manual) 51 % Lymphocytes % (Manual) 16 % Reactive Lymphs % (Man) 15 % Monocytes % (Manual) 14 % Eosinophils % (Manual) 3 % Basophils % (Manual) 1 % Neutrophils # (Manual) 6.99 H (1.40-6.50) K/uL Total Absolute Neuts 6.99 H (1.4-6.5) K/uL Lymphocytes # (Manual) 2.19 (1.2-3.4) K/uL Reactive Lymphs # 2.05 K/uL Total Abs Lymphocytes 4.25 H (1.2-3.4) K/uL Monocytes # (Manual) 1.92 H (0.11-0.59) K/uL Eosinophils # (Manual) 0.41 (0-0.50) K/uL Basophils # (Manual) 0.14 (0-0.2) K/uL RBC Morphology Unremarkable ESR 76 H (0-20) mm/hr PT 10.6 (9.0-12.0) Seconds INR 1.0 (0.9-1.1) APTT 28 (21-31) Seconds PTT Ratio 1.0 Sodium 135 L (136-145) mmol/L Potassium 4.5 (3.5-5.1) mmol/L Chloride 100 (98-107) mmol/L Carbon Dioxide 28 (21-32) mmol/L Anion Gap 7 (3-11) BUN 9 (6-23) mg/dl Creatinine 0.79 (0.6-1.4) mg/dl Est Cr Clr Drug Dosing 82.4 ml/min eGFR 101.70 BUN/Creatinine Ratio 11.4 (10-20) Glucose 104 H (70-99(Fasting)) mg/dl Lactate 1.8 (0.4-2.0) mmol/L Uric Acid 7.7 H (2.6-7.2) mg/dl Calcium 9.2 (8.6-10.3) mg/dl Magnesium 2.1 (1.7-2.4) mg/dl Total Bilirubin 1.0 (0.2-1.0) mg/dl AST 27 (13-39) U/L ALT 15 (7-52) U/L Alkaline Phosphatase 134 H (34-104) U/L C-Reactive Protein 6.87 H (0-0.5) mg/dl Total Protein 8.8 H (6.0-8.3) gm/dl Albumin 3.8 (3.4-5.0) gm/dl Globulin 5.0 H (2.5-4.0) gm/dl Albumin/Globulin Ratio 0.8 L (0.9-2) Procalcitonin 0.07 (0-0.5) ng/ml Administered Medications Discontinued Medications Colchicine (Colchicine 0.6 Mg Tab) 0.6 mg PO NOW ONE Stop: 06/06/25 20:26 Last Admin: 06/06/25 21:23 Dose: 0.6 mg Documented By: RICHARDSON Diphtheria/Pertussis/Tetanus Vacc (Diphther/Tetan/Pertus Vaccine (Tdap, Adol/Adult) 0.5ml) 0.5 ml IM .ONCE ONE Stop: 06/06/25 18:02 Last Admin: 06/06/25 18:27 Dose: 0.5 ml Documented By: CAROLA Gabapentin (Gabapentin 600 Mg Tab) 1,200 mg PO NOW ONE; Protocol Stop: 06/06/25 20:47 Last Admin: 06/06/25 21:23 Dose: 1,200 mg Documented By: RICHARDSON Sodium Chloride (Nss) 500 mls @ 999 mls/hr IV .Q31M ONE Stop: 06/06/25 17:59 Last Infusion: 06/06/25 19:19 Dose: Infused Documented By: tcm Admin: 06/06/25 17:56 Dose: 999 mls/hr Documented By: ALISON Acetaminophen (Ofirmev) 1,000 mg in 100 mls @ 400 mls/hr IV NOW STA Stop: 06/06/25 17:43 Last Infusion: 06/06/25 19:19 Dose: Infused Documented By: tcm Admin: 06/06/25 17:56 Dose: 400 mls/hr Documented By: ALISON Ceftriaxone Sodium (Rocephin) 2,000 mg in 50 mls @ 100 mls/hr IV NOW STA Stop: 06/06/25 19:36 Last Infusion: 06/06/25 19:46 Dose: Infused Documented By: tcm Admin: 06/06/25 19:16 Dose: 100 mls/hr Documented By: josué Vancomycin HCl 1,500 mg/ (Sodium Chloride) 530 mls @ 200 mls/hr IV NOW ONE Stop: 06/06/25 21:45 Last Admin: 06/06/25 19:41 Dose: 200 mls/hr Documented By: [facility] Imaging Data Radiologist's Impression: Forearm X-Ray 06/06/25 17:29 Exam: 2 view right forearm. History: Right hand infection. Pain. Comparison:None. Findings: Vascular calcifications are noted. Mild diffuse demineralization. No discrete destructive osseous or joint process. Prominent osteophyte of the olecranon. Very small hyperdensity along the dorsal proximal superficial forearm soft tissues. This measures approximately 3 mm greatest dimension. Suspect calcification. There is increased soft tissue volume and attenuation of the dorsal medial aspect of the proximal forearm. No discrete soft tissue gas or fluid collection. Increase soft tissue volume attenuation overlying the olecranon. No radiopaque foreign body or discrete laceration. Impression: 1. Small superficial soft tissue calcification along the proximal dorsal forearm. Just ventral to this is a area of nonspecific soft tissue swelling. No discrete soft tissue gas. Correlate with clinical data. CT or MRI would be helpful for further characterization if indicated. 2. Prominent soft tissues overlying the olecranon with olecranon osteophyte. Olecranon bursitis not excluded. 3. Vascular calcifications. 4. No discrete destructive osseous or joint process. Electronically signed by Dion Dalton 06-06-2025 6:40 PM Hand X-Ray 06/06/25 17:29 Exam: 4 view right hand. History: Infection. Comparison:None. Findings: Vascular calcifications are noted. Remote fracture deformity of the fifth metatarsal neck. Mild diffuse soft tissue swelling of the hand. Larger focal region of increased soft tissue volume attenuation along the dorsal distal metatarsal aspect of the hand is noted. No discrete radiopaque foreign body or laceration. No destructive osseous or joint process. Impression: Mild nonspecific diffuse soft tissue swelling of the hand with superimposed focal region along the dorsal metatarsals. No discrete soft tissue gas or radiopaque foreign body. Correlate with clinical data. Electronically signed by Dion Dalton 06-06-2025 6:42 PM Discharge Plan Visit Data Chief Complaint: Infection, Wound Stated Complaint: INFECTION IN RT ARM/HAND ED Provider: Yenifer Marinelli ED Midlevel Provider: Jaz Brooks Discharge Problem: Cellulitis of right hand, Right forearm cellulitis, History of gout, History of seizure due to alcohol withdrawal Patient Disposition: Admitted As Inpatient Condition: Fair Forms Stand Alone Forms: [facility], Important Visit Information Prescriptions Prescriptions: No Action acetaminophen [Tylenol] 325 mg Tablet 325 mg PO Q8H PRN (Reason: Pain) naproxen sodium [Aleve] 220 mg Tablet 220 mg PO DAILY PRN (Reason: Pain) Referrals Referrals: Dane Nicholson MD [Physician] -
[2025-06-06] MEDS: SODIUM CHLORIDE 0.9% 500 ML IV ONE (17:56)
[2025-06-06] MEDS: ACETAMINOPHEN 1,000 MG/100 ML VIAL IV STA (17:56)
[2025-06-06 18:16] LABS: Alanine Aminotransferase 15.0 U/L (7-52); Albumin Globulin Ratio 0.8 (0.9-2); Albumin Level 3.8 gm/dl (3.4-5.0); Alkaline Phosphatase 134.0 U/L (34-104); Anion Gap 7.0 (3-11); Bilirubin,Total 1.0 mg/dl (0.2-1.0); Blood Urea Nitrogen 9.0 mg/dl (6-23); Calcium 9.2 mg/dl (8.6-10.3); Carbon Dioxide 28.0 mmol/L (21-32); Chloride 100.0 mmol/L (98-107); Creatinine Clr Calc Pharmacy 82.4 ml/min; Globulin 5.0 gm/dl (2.5-4.0); Glucose 104.0 mg/dl (70-99(Fasting)); Magnesium 2.1 mg/dl (1.7-2.4); Potassium 4.5 mmol/L (3.5-5.1); Sodium 135.0 mmol/L (136-145); Total Protein 8.8 gm/dl (6.0-8.3); Uric Acid 7.7 mg/dl (2.6-7.2)
[2025-06-06 18:26] LABS: INR 1.0 (0.9-1.1); Partial Thromboplastin Time 28 Seconds (21-31); Prothrombin Time 10.6 Seconds (9.0-12.0)
[2025-06-06] MEDS: DIPHTHER/TETAN/PERTUS Vaccine (Tdap, Adol/Adult) 0.5mL IM ONE (18:27)
--- NOTE | 2025-06-06 18:40 | XRay Report ---
Exam: 2 view right forearm. History: Right hand infection. Pain. Comparison:None. Findings: Vascular calcifications are noted. Mild diffuse demineralization. No discrete destructive osseous or joint process. Prominent osteophyte of the olecranon. Very small hyperdensity along the dorsal proximal superficial forearm soft tissues. This measures approximately 3 mm greatest dimension. Suspect calcification. There is increased soft tissue volume and attenuation of the dorsal medial aspect of the proximal forearm. No discrete soft tissue gas or fluid collection. Increase soft tissue volume attenuation overlying the olecranon. No radiopaque foreign body or discrete laceration. Impression: 1. Small superficial soft tissue calcification along the proximal dorsal forearm. Just ventral to this is a area of nonspecific soft tissue swelling. No discrete soft tissue gas. Correlate with clinical data. CT or MRI would be helpful for further characterization if indicated. 2. Prominent soft tissues overlying the olecranon with olecranon osteophyte. Olecranon bursitis not excluded. 3. Vascular calcifications. 4. No discrete destructive osseous or joint process. Electronically signed by Dion Dalton 06-06-2025 6:40 PM
--- NOTE | 2025-06-06 18:42 | XRay Report ---
Exam: 4 view right hand. History: Infection. Comparison:None. Findings: Vascular calcifications are noted. Remote fracture deformity of the fifth metatarsal neck. Mild diffuse soft tissue swelling of the hand. Larger focal region of increased soft tissue volume attenuation along the dorsal distal metatarsal aspect of the hand is noted. No discrete radiopaque foreign body or laceration. No destructive osseous or joint process. Impression: Mild nonspecific diffuse soft tissue swelling of the hand with superimposed focal region along the dorsal metatarsals. No discrete soft tissue gas or radiopaque foreign body. Correlate with clinical data. Electronically signed by Dion Dalton 06-06-2025 6:42 PM
[2025-06-06 18:58] LABS: ALC (manual) 4.25 K/uL (1.2-3.4); ANC (manual) 6.99 K/uL (1.4-6.5); Hematocrit (blood only) 45.8 % (42.0-52.0); Hemoglobin 15.6 g/dl (14.0-18.0); Mean Corpuscular Hemoglobin 34.4 pg (25.0-34.0); Mean Corpuscular Volume 100.9 fL (80.0-100.0); Platelet Count 283 K/uL (130-400); RBC Morphology Unremarkable; RDW Standard Deviation 61.2 fL (36.4-46.3); Reactive Lymphocytes # (manual) 2.05 K/uL; Reactive Lymphocytes % (manual) 15 %; Red Blood Count 4.54 M/uL (4.70-6.10); White Blood Count 13.70 K/ul (4.8-10.8)
[2025-06-06] MEDS ORDERED: VANCOMYCIN CONSULT ACTIVE PRN (19:07)
[2025-06-06] MEDS: cefTRIAXone SODIUM 2,000 MG/50 ML BAG IV STA (19:16)
[2025-06-06] MEDS: VANCOMYCIN HCL 1,500 MG in SODIUM CHLORIDE 0.9% 500 ML IV ONE (19:41)
--- NOTE | 2025-06-06 20:23 | History & Physical Report ---
Date of Service June 06, 2025 Assessment & Plan (1) Cellulitis of right hand: (2) Right forearm cellulitis: (3) History of gout: (4) Alcohol withdrawal: (5) History of seizure due to alcohol withdrawal: Plan Patient is a 59-year-old male with past medical history of PE, colostomy status, fatty liver disease, alcohol use disorder, alcohol withdrawal seizure. patient presented due to a right finger infection that progressed up his right arm x5 days. He is being admitted for concern with rapid progression of cellulitis and for alcohol withdrawal. #right hand cellulitis - Concern for tenosynovitis given decreased range of motion on presentation to ED however resolved at time of admission. WC 13.70, ESR 76, CRP 6.87. Nonseptic - VSS. Diagnostic imaging revealed non-specific soft tissue swelling, no gas or foreign body. - Transition Rocephin to cefepime Continue vancomycin Blood cultures ordered Tylenol as needed for pain Trend CBC Will defer Ortho consult given range of motion improvement however if clinically declines could consider #gout - with chronic alcohol use disorder. Uric acid 7.6. Suspect contributing to above. - does not use allopurinol at baseline due to reaction - colchicine 0.6 mg BID started on admission #alcohol withdrawal - Typically drinks 1/2-3/4 pint of whiskey per day; last drink 9 PM 06/05. No symptoms of withdrawal on admission, hx of withdrawal seizure several years ago. - AWSS at risk protocol with IV Ativan - gabapentin taper ordered with history of seizures - continue home thiamine and folic acid supplements VTE ppx: Lovenox, hx of PE Dispo: PCU with history of alcohol withdrawal seizures Admission and Anticipated Discharge Date Admission Date: 06/06/25 History of Present Illness Chief Complaint: infection Primary Care Provider: Arik Baig MD Patient is a 59-year-old male with past medical history of PE, colostomy status, fatty liver disease, alcohol use disorder, alcohol withdrawal seizure. patient presented due to a right finger infection that progressed up his right arm x5 days. He is being admitted for concern for tenosynovitis and alcohol withdrawal. Patient seen at bedside with his present. Patient stated on Monday he developed right middle finger erythema which then started to progress of his hand and arm movement Monday discussed. It was painful and he was struggling to move his fingers today. His movement has improved after biotics and Tylenol in the ED. Patient denies any trauma or bite to his extremity. He did have a suspected brown recluse spider bite to his right ring finger in March however was resolved prior to this. He denies any fevers or chills. There is also concern for alcohol withdrawal given patient drinks 1/2-3/4 of a pint of whiskey per day. He does have a history of an alcohol withdrawal seizure several years ago. His last drink was at 9 PM last night. He denies any current signs or symptoms of withdrawal. He is agreeable to detox while he has admitted. He also endorses snuff use however declines need for nicotine patch at this time. He does have a past medical history of gout and does not take allopurinol because he stated it made it worse after treatment for 4 months. He is no longer on anticoagulation for PE. He wishes to be full code. Patient denies fever, chills, cough, dyspnea, chest pain, abdominal pain, nausea, heart palpitations, anxiety. Allergies Allergy/AdvReac Type Severity Reaction Status Date / Time No Known Allergies Allergy Verified 06/06/25 20:49 Home Medications Medication Instructions Recorded Confirmed Type acetaminophen 325 mg tablet 325 mg PO Q8H PRN Pain 06/06/25 06/06/25 History (Tylenol) naproxen sodium 220 mg tablet 220 mg PO DAILY PRN Pain 06/06/25 06/06/25 History (Aleve) Past Med/Surg History Problem List (Updated 06/06/25 @ 22:10 by Jaz Brooks PA-C) History of seizure due to alcohol withdrawal (Acute) History of gout (Acute) Right forearm cellulitis (Acute) Cellulitis of right hand (Acute) Tick bite Colostomy in place Alcohol withdrawal (Acute) Vomiting (Acute) Acute dehydration (Acute) Tachycardia (Acute) Sepsis (Acute) Pulmonary emboli (Acute) Enterocutaneous fistula (Acute) Diverticula of colon (Acute 08/05/14) Cholelithiasis (Acute) Alcoholic fatty liver (Acute) Abdominal wall cellulitis (Acute) Colonic obstruction (Acute 07/26/14) Medical History Alcohol withdrawal Alcoholic fatty liver Colonic obstruction (07/26/14) Colostomy in place Pulmonary emboli Family History Other Family history non-contributory Social History Smoking Status: Never smoker Tobacco Type: Smokeless Tobacco (Dip or Chew) Do You Dip or Chew Tobacco: Yes; Hx Alcohol Use: Yes Alcohol type: hard liquor Hx Substance Use: No Preferred Language: [place] Citizen Communication Ability: Effective Caramel Candy Maker Required: No Beliefs That Will Affect Care: None marital status: Current Living Situation: Spouse Feels Safe at Home: Yes Safety Concerns: Feels Safe At This Time Assistive Devices: Glasses Review of Systems Review of Systems: see HPI Physical Exam Physical Exam: The patient is awake, alert and oriented 3, well developed and well nourished, normocephalic and atraumatic, in no acute distress. Non-toxic appearing. HEENT- EOMI, mucous membranes moist. Hearing grossly intact. Heart-normal S1 and S2. No murmurs, rubs or gallops. Lungs-clear bilaterally, no respiratory distress, no accessory muscle use. Abdomen-normal bowel sounds and soft. No ascites noted. Non-tender. Extremities- Right upper extremity with erythema and warmth extending circumferentially around forearm and into hand. Significant swelling of right middle and ring finger. Normal range of motion. No signs of open wound or drainage. Psychiatric-normal affect. Results & Data Results & Data Vital Signs (Past 12 Hours) Vital Signs Temp Pulse Resp BP Pulse Ox O2 Del Method 06/06/25 19:32 55 L 06/06/25 16:47 37 C 65 18 174/91 H 100 Room Air Laboratory Results Reviewed CBC, PT/INR, CMP, Pro-Christopher, ESR, uric acid, crp, mag Diagnostic Findings reviewed hand xr and forearm xr Medications Administered ED - tetanus vaccine, vancomycin IV, 500 ml NSS bolus, Tylenol 1g IV, Rocephin 2g IV admission - gabapentin taper, colchicine 0.6 mg PO, cefepime 2g IV ECG Additional Comments: ordered Code Status & VTE Plan Code Status full VTE Prophylaxis Plan VTE Prophylaxis will be ordered: Yes Supervising Physician Co-Signing Physician Notes Attending addendum: I have physically seen this patient, have supervised the NITA's activities, and agree with the H&P unless as otherwise noted. Assessment and Plan: The patient is a 59-year-old male with past medical history including PE, colostomy status, fatty liver disease, alcohol use disorder, and alcohol withdrawal seizures. He presented to the emergency department due to right finger infection that has now progressed up his right past 5 days. Right hand cellulitis- Consideration for developing tenosynovitis X-rays with nonspecific soft tissue swelling, without gas or foreign body Given ceftriaxone 2 g IV in ED Placed on vancomycin IV and cefepime IV Follow-up blood culture and sensitivity Acetaminophen 650 mg by mouth every 6 hours as needed for mild pain or fever Serial laboratories as noted Gout/hyperuricemia- Uric acid 7.6 on admission Start colchicine 0.6 mg p.o. twice daily alcohol withdrawal AWSS protocol Will start gabapentin due to seizure history as well. Continue thiamine and folic acid Remaining orders and notations as noted PG Care Time/CCT Total # of Minutes Spent Total Time Spent with Patient: Total time spent is greater than 50% in coordination of care (as documented) at patient's floor/unit and/or counseling patient: Coding Level of Care Code 37166 INT INP/OBS CARE MIN Diagnoses Cellulitis of right hand L03.113 Right forearm cellulitis L03.113 History of gout Z87.39 Alcohol withdrawal F10.230 Complication of substance-induced condition: uncomplicated History of seizure due to alcohol withdrawal Z87.898; Z86.59 (4) Alcohol withdrawal Complication of substance-induced condition: uncomplicated Qualified Code(s): F10.230 - Alcohol dependence with withdrawal, uncomplicated
[2025-06-06] MEDS ORDERED: LORazepam Inj 1 MG in SYRINGE 0.5 ML IV PRN (20:25)
[2025-06-06] MEDS ORDERED: GABAPENTIN 1200MG ALCOHOL WITHDRAWAL LOAD PO STA (20:46)
[2025-06-06] MEDS: COLCHICINE 0.6 MG TAB PO ONE (21:23)
[2025-06-06] MEDS: GABAPENTIN 600 MG TAB PO ONE (21:23)
[2025-06-07] MEDS ORDERED: ONDANSETRON INJ 2 MG/ML 2 ML VIAL IV PRN (02:06)
[2025-06-07] MEDS ORDERED: DOCUSATE SODIUM 100 MG CAP PO PRN (02:06)
[2025-06-07] MEDS ORDERED: VANCOMYCIN CONSULT ACTIVE PRN (02:06)
[2025-06-07] MEDS: FAMOTIDINE 20 MG TAB PO SCH (02:41)
[2025-06-07] MEDS: ACETAMINOPHEN 325 MG TAB PO PRN (02:45)
[2025-06-07] MEDS: CEFEPIME 2000MG 2,000 MG/20 ML SYR IV SCH (04:19)
[2025-06-07] MEDS: GABAPENTIN 600 MG TAB PO SCH ×2 (06:04→21:19)
[2025-06-07] MEDS: VANCOMYCIN HCL 1,000 MG in SODIUM CHLORIDE 0.9% 250 ML IV SCH (06:05)
[2025-06-07] MEDS: THIAMINE HCL 100 MG TAB PO SCH (08:34)
[2025-06-07] MEDS: COLCHICINE 0.6 MG TAB PO SCH (08:34)
[2025-06-07] MEDS: FOLIC ACID 1 MG TAB PO SCH (08:34)
[2025-06-07] MEDS: ENOXAPARIN INJ 40 MG/0.4 ML SYR SQ SCH (08:38)
[2025-06-07 10:12] LABS: Hematocrit (blood only) 43.7 % (42.0-52.0); Hemoglobin 14.9 g/dl (14.0-18.0); Immature Granulocytes # (auto) 0.03 K/uL (0.01-0.20); Immature Granulocytes % (auto) 0.3 %; Mean Corpuscular Hemoglobin 35.0 pg (25.0-34.0); Mean Corpuscular Volume 102.6 fL (80.0-100.0); Platelet Count 254 K/uL (130-400); RDW Standard Deviation 61.6 fL (36.4-46.3); Red Blood Count 4.26 M/uL (4.70-6.10); White Blood Count 9.83 K/ul (4.8-10.8)
[2025-06-07 10:27] LABS: Alanine Aminotransferase 12.0 U/L (7-52); Albumin Globulin Ratio 0.8 (0.9-2); Albumin Level 3.2 gm/dl (3.4-5.0); Alkaline Phosphatase 109.0 U/L (34-104); Anion Gap 5.0 (3-11); Bilirubin,Total 0.7 mg/dl (0.2-1.0); Blood Urea Nitrogen 8.0 mg/dl (6-23); Calcium 8.5 mg/dl (8.6-10.3); Carbon Dioxide 25.0 mmol/L (21-32); Chloride 105.0 mmol/L (98-107); Creatinine Clr Calc Pharmacy 102.6 ml/min; Globulin 4.2 gm/dl (2.5-4.0); Glucose 113.0 mg/dl (70-99(Fasting)); Potassium 4.1 mmol/L (3.5-5.1); Sodium 135.0 mmol/L (136-145); Total Protein 7.4 gm/dl (6.0-8.3)
--- NOTE | 2025-06-07 14:23 | Pharmacy Report ---
Pharmacy PK ABX Note - Date of Service June 07, 2025 - Assessment and Plan Assessment 59 year old M receiving empiric vancomycin + ceftriaxone IV for treatment of right finger cellulitis with concern for tenosynovitis due to decreased range of motion on presentation to ED. BC pending. Plan Vancomycin * Loading dose: 1500 mg IV x 1 * Maintenance dose: 1000 mg IV-06/07 @ 0600, then start 1250 mg IV q12h at 1800 * Adjustment to maintenance dose made 2/2 change in patient weight (58.6 -> 65.5 kg with the later being more consistent with past weights) * Regimen is predicted to achieve target AUC/TRACEY of 400-600 mg/L.hr * Will obtain vancomycin level in the next 24-48 hours, if continued Pharmacy will continue to follow and will adjust dose/frequency as necessary. Thank you. Pharmacy has transitioned to AUC monitoring for vancomycin. AUC/TRACEY is the preferred PK/PD target and is associated with decreased risk of nephrotoxicity compared to traditional trough targets.
--- NOTE | 2025-06-07 16:48 | Electrocardiogram Report ---
Test Reason : Blood Pressure : */* mmHG Vent. Rate : 60 BPM Atrial Rate : 60 BPM P-R Int : 142 ms QRS Dur : 76 ms QT Int : 414 ms P-R-T Axes : * 28 48 degrees QTcB Int : 414 ms Normal sinus rhythm Normal ECG When compared with ECG of 25-Apr-2022 10:47, Premature atrial complexes are no longer Present Confirmed by Dane Keating ([id number]) on 06/07/2025 4:48:04 PM Referred By: REFERRED SELF Confirmed By: Dane Keating
--- NOTE | 2025-06-07 18:17 | Hospitalist Progress Note ---
Date of Service June 07, 2025 Assessment & Plan (1) Cellulitis of right hand: (2) Right forearm cellulitis: (3) History of gout: (4) Alcohol withdrawal: (5) History of seizure due to alcohol withdrawal: Plan Patient is a 59-year-old male with past medical history of PE, colostomy status, fatty liver disease, alcohol use disorder, alcohol withdrawal seizure. patient presented due to a right finger infection that progressed up his right arm x5 days. He is being admitted for concern with rapid progression of cellulitis and for alcohol withdrawal. #right hand cellulitis - Concern for tenosynovitis given decreased range of motion on presentation to ED however resolved at time of admission. WC 13.70, ESR 76, CRP 6.87. Nonseptic - VSS. Diagnostic imaging revealed non-specific soft tissue swelling, no gas or foreign body. - MRSA neg, abx (Vanc / Cefepime) downgraded to Ceftriaxone alone Blood cultures NGTD Tylenol as needed for pain - WBC improved Will defer Ortho consult given range of motion improvement however if clinically declines could consider #gout - with chronic alcohol use disorder. Uric acid 7.6. Suspect contributing to above. - does not use allopurinol at baseline due to reaction - colchicine 0.6 mg BID started on admission #alcohol withdrawal - Typically drinks 1/2-3/4 pint of whiskey per day; last drink 9 PM 06/05. No symptoms of withdrawal on admission, hx of withdrawal seizure several years ago. - AWSS at risk protocol with IV Ativan - gabapentin taper ordered with history of seizures - continue home thiamine and folic acid supplements VTE ppx: Lovenox, hx of PE Dispo: PCU with history of alcohol withdrawal seizures Admission and Anticipated Discharge Date Admission Date: June 06, 2025 Subjective he reports significant improvement in his swelling and improved mobility Review of Systems Review of Systems: Comprehensive ROS completed and is otherwise negative. Physical Exam Physical Exam: Gen: no acute distress, lying in bed comfortable HEENT: NC/AT, MMM Lungs: nonlabored breathing, CTAB CVS: s1s2nl, RRR Abd: nl bowel sounds, soft, NT / ND : no phillips Right hand: swelling present, erythema extending down the arm, pt able to move his digits but not able to make full fist yet Ext: no edema Neuro: AAOx3 Psych: calm, cooperative Results & Data Results & Data Vital Signs (Past 12 Hours) Vital Signs Temp Pulse Pulse Resp BP Pulse Ox O2 Del Method 06/07/25 15:07 36.7 C 100 H 153/90 H 99 Room Air 06/07/25 14:32 54 L 06/07/25 11:07 36.9 C 52 L 163/82 H 99 Room Air 06/07/25 08:27 36.6 C 56 L 26 H 154/86 H 98 Room Air 06/07/25 07:53 52 L PG Care Time/CCT Total # of Minutes Spent Total Time Spent with Patient: Total time spent is greater than 50% in coordination of care (as documented) at patient's floor/unit and/or counseling patient: Coding Level of Care Code 68495 SUB INP/OBS CARE 3/50MIN Diagnoses Cellulitis of right hand L03.113 Right forearm cellulitis L03.113 History of gout Z87.39 Alcohol withdrawal F10.230 Complication of substance-induced condition: uncomplicated History of seizure due to alcohol withdrawal Z87.898; Z86.59 (4) Alcohol withdrawal Complication of substance-induced condition: uncomplicated Qualified Code(s): F10.230 - Alcohol dependence with withdrawal, uncomplicated
[2025-06-07] MEDS: VANCOMYCIN HCL 1,250 MG in SODIUM CHLORIDE 0.9% 250 ML IV SCH (18:21)
[2025-06-07] MEDS: cefTRIAXone SODIUM 2,000 MG/50 ML BAG IV SCH (18:47)
[2025-06-07] MEDS: MELATONIN 3 MG TAB PO PRN (21:18)
[2025-06-08 07:22] LABS: Hematocrit (blood only) 40.8 % (42.0-52.0); Hemoglobin 14.4 g/dl (14.0-18.0); Mean Corpuscular Hemoglobin 35.6 pg (25.0-34.0); Mean Corpuscular Volume 100.7 fL (80.0-100.0); Platelet Count 300 K/uL (130-400); RDW Standard Deviation 58.6 fL (36.4-46.3); Red Blood Count 4.05 M/uL (4.70-6.10); White Blood Count 8.78 K/ul (4.8-10.8)
[2025-06-08 07:41] LABS: Anion Gap 8.0 (3-11); Blood Urea Nitrogen 9.0 mg/dl (6-23); Calcium 8.4 mg/dl (8.6-10.3); Carbon Dioxide 24.0 mmol/L (21-32); Chloride 102.0 mmol/L (98-107); Creatinine Clr Calc Pharmacy 97.2 ml/min; Glucose 113.0 mg/dl (70-99(Fasting)); Potassium 3.9 mmol/L (3.5-5.1); Sodium 134.0 mmol/L (136-145)
[2025-06-08] MEDS: OPTIRAY 320 100ml IV ONE (13:58)
--- NOTE | 2025-06-08 14:36 | CT Scan Report ---
EXAM: CT Right Upper Extremity With Intravenous Contrast Hand INDICATION: Cellulitis TECHNIQUE: Axial computed tomography images of the right hand with intravenous contrast. Sagittal and coronal reformatted images were created and reviewed. This CT exam was performed using one or more of the following dose reduction techniques: automated exposure control, adjustment of the mA and/or kV according to patient size, and/or use of iterative reconstruction technique. CONTRAST: 93 ml of Optiray 320 was administered intravenously. COMPARISON: No relevant prior studies available. FINDINGS: Bones/joints: No acute osseous abnormality. Old fracture of the fifth metacarpal. No erosion. Soft tissues: Soft tissue swelling with dorsal abscess partially surrounding the extensor tendon sheath of the third finger continuing proximally tapering anterior to the proximal shaft of the 3rd and 4th metatarsals. The collection measures approximately 2.2 cm greatest transverse diameter, 1.1 cm greatest AP diameter and approximately 3 cm long. There is no associated gas. Vasculature: Atherosclerotic calcification noted. IMPRESSION: 1. 2.2 x 1.2 x 3.0 cm abscess beginning at the level of the dorsum of the third finger at the proximal interphalangeal joint and extending proximally anterior to the 3rd and 4th metacarpal shafts. 2. No acute osseous abnormality. ACT 112: N/A Electronically signed by Shirlene Leal 06-08-2025 2:35 PM
--- NOTE | 2025-06-08 15:43 | Hospitalist Progress Note ---
Date of Service June 08, 2025 Assessment & Plan (1) Cellulitis of right hand: (2) Right forearm cellulitis: (3) History of gout: (4) Alcohol withdrawal: (5) History of seizure due to alcohol withdrawal: Plan Patient is a 59-year-old male with past medical history of PE, colostomy status, fatty liver disease, alcohol use disorder, alcohol withdrawal seizure. patient presented due to a right finger infection that progressed up his right arm x5 days. He is being admitted for concern with rapid progression of cellulitis and for alcohol withdrawal. #right hand cellulitis - Concern for tenosynovitis given decreased range of motion on presentation to ED however resolved at time of admission. WC 13.70, ESR 76, CRP 6.87. Nonseptic - VSS. Diagnostic imaging revealed non-specific soft tissue swelling, no gas or foreign body. - Transition Rocephin to cefepime Continue vancomycin Blood cultures ordered Tylenol as needed for pain - CT hand showing 2.2 x 1.2 x 3.0 cm abscess beginning at the level of the dorsum of the third finger at the proximal interphalangeal joint and extending proximally anterior to the 3rd and 4th metacarpal shafts - spoke with ortho- full c/s pending, NPO p MN #gout - with chronic alcohol use disorder. Uric acid 7.6. Suspect contributing to above. - does not use allopurinol at baseline due to reaction - colchicine 0.6 mg BID started on admission #alcohol withdrawal - Typically drinks 1/2-3/4 pint of whiskey per day; last drink 9 PM 06/05. No symptoms of withdrawal on admission, hx of withdrawal seizure several years ago. - AWSS at risk protocol with IV Ativan - gabapentin taper ordered with history of seizures - continue home thiamine and folic acid supplements VTE ppx: Lovenox, hx of PE Dispo: PCU with history of alcohol withdrawal seizures , pending ortho eval Admission and Anticipated Discharge Date Admission Date: June 06, 2025 Subjective Pt states he feels better Review of Systems Review of Systems: Comprehensive ROS completed and is otherwise negative. Physical Exam Physical Exam: Gen: no acute distress, lying in bed comfortable HEENT: NC/AT, MMM Lungs: nonlabored breathing, CTAB CVS: s1s2nl, RRR Abd: nl bowel sounds, soft, NT / ND : no phillips Right hand: swelling present, erythema extending down the arm, pt able to move his digits but not able to make full fist yet (imrpoving- however, dorsal area over the 3rd knuckle appears to be boggy / fluctuant) Ext: no edema Neuro: AAOx3 Psych: calm, cooperative Results & Data Results & Data Vital Signs (Past 12 Hours) Vital Signs Temp Pulse Pulse Resp BP Pulse Ox O2 Del Method 06/08/25 11:00 36.5 C 80 145/82 H 97 Room Air 06/08/25 08:00 48 L 06/08/25 07:14 36.6 C 51 L 134/76 97 Room Air 06/08/25 04:21 36.6 C 48 L 18 128/75 99 Room Air PG Care Time/CCT Total # of Minutes Spent Total Time Spent with Patient: Total time spent is greater than 50% in coordination of care (as documented) at patient's floor/unit and/or counseling patient: Coding Level of Care Code 06542 SUB INP/OBS CARE 3/50MIN Diagnoses Cellulitis of right hand L03.113 Right forearm cellulitis L03.113 History of gout Z87.39 Alcohol withdrawal F10.230 Complication of substance-induced condition: uncomplicated History of seizure due to alcohol withdrawal Z87.898; Z86.59 (4) Alcohol withdrawal Complication of substance-induced condition: uncomplicated Qualified Code(s): F10.230 - Alcohol dependence with withdrawal, uncomplicated
[2025-06-08] MEDS: LIDOCAINE 2% 20 MG/ML 5 ML SYR IV ONE (19:51)
[2025-06-08] MEDS: LIDOCAINE 2% LOCAL 50 ML VIAL ONE (19:52)
--- NOTE | 2025-06-08 20:06 | Orthopedic Consultation ---
Date of Service June 08, 2025 Assessment & Plan (1) Abscess of right hand: * Case/imaging reviewed and discussed with Dr Bird * Recommend right hand aspiration * Consent was obtained from the patient and risks and benefit of the procedure we discussed at bedside with patient and his . Pt agreed to aspiration. Hand was cleansed with alcohol and 3 mL of 2% lidocaine was used to anesthetize the skin using a 22 gauge needle. An 18 Gauge needle was then used to aspirate approximately 4 mL of thick purulent fluid from the dorsal aspect of right hand over area of fluctuance in sterile fashion. Hand was then dressing with sterile gauze and aranza bandage for compression. * Disposition: TBD * Daily treatment: Physical Therapy/ Occupational Therapy per protocol * Weight bearing status: as tolerated * Pain control * Remainder care per primary team * Compression with aranza bandage, elevation and warm compresses. Antibiotic tailored to pending culture of aspirated fluid. (2) Cellulitis of right hand: (3) History of gout: History of Present Illness Reason for Consultation: Right hand abscess . Requesting Physician: . Attending Physician: Sebastian Garcia MD .Patient is a 59 y/o male with right hand swelling and redness. PMH including PE, colostomy status, fatty liver disease, alcohol use disorder, alcohol withdrawal seizure. patient presented due to a right finger infection that progressed up his right arm x5 days. He is being admitted for concern with rapid progression of cellulitis and for alcohol withdrawal. Current workup including hand x-rays and CT and lab work. Orthopedics consulted for management recommendations. At time of exam patient patient states his right hand swelling and redness has gone down. Pt still notes pain but is able to flex his right middle finger but is limited due to swelling and tight feeling. Pt notes he had a spider bite on the end of his right ring finger back in March but states that seemed different that this patient denies other skin opening, injury or puncture to this area. Allergies Allergy/AdvReac Type Severity Reaction Status Date / Time No Known Allergies Allergy Verified 06/06/25 20:49 Home Medications Medication Instructions Recorded Confirmed Type acetaminophen 325 mg tablet 325 mg PO Q8H PRN Pain 06/06/25 06/06/25 History (Tylenol) naproxen sodium 220 mg tablet 220 mg PO DAILY PRN Pain 06/06/25 06/06/25 History (Aleve) Past Med/Surg History Problem List (Updated 06/08/25 @ 19:59 by Rima Clifton PA-C) Abscess of right hand History of seizure due to alcohol withdrawal (Acute) History of gout (Acute) Right forearm cellulitis (Acute) Cellulitis of right hand (Acute) Tick bite Colostomy in place Alcohol withdrawal (Acute) Vomiting (Acute) Acute dehydration (Acute) Tachycardia (Acute) Sepsis (Acute) Pulmonary emboli (Acute) Enterocutaneous fistula (Acute) Diverticula of colon (Acute 08/05/14) Cholelithiasis (Acute) Alcoholic fatty liver (Acute) Abdominal wall cellulitis (Acute) Colonic obstruction (Acute 07/26/14) Medical History Alcohol withdrawal Alcoholic fatty liver Colonic obstruction (07/26/14) Colostomy in place Pulmonary emboli Family History Other Family history non-contributory Social History Smoking Status: Never smoker Tobacco Type: Smokeless Tobacco (Dip or Chew) Do You Dip or Chew Tobacco: Yes; Hx Alcohol Use: Yes Alcohol type: hard liquor Hx Substance Use: No Preferred Language: Turkish Communication Ability: Effective Big Data Lead Required: No Beliefs That Will Affect Care: None marital status: Current Living Situation: Spouse Feels Safe at Home: Yes Safety Concerns: Feels Safe At This Time Assistive Devices: Glasses Review of Systems All systems reviewed & are unremarkable except as noted in HPI & below. Physical Exam . * General: Alert and oriented, no acute distress * Constitutional: well-developed, well-nourished. * Respiratory: Normal respiratory effort, no distress * Gastrointestinal: No tenderness to palpation, no rigidity or guarding. * Skin: No rash or lesion. * Neurologic: Grossly normal * Musculoskeletal: Right hand with diffuse swelling, erythema extending from DIP joint of right middle finger proximally on dorsal aspect of right hand just proximal of the wrist crease. Pt is able to flex and extend right 3rd digit but is limited due to swelling and pain. An area of fluctance is noted over the dorsum between MCP and CMC joints of 3rd digit. * Results & Data Results & Data Laboratory Results Laboratory Results - last 24 hr 06/08/25 06/08/25 06:32 Unknown WBC 8.78 RBC 4.05 L Hgb 14.4 Hct 40.8 L MCV 100.7 H MCH 35.6 H MCHC 35.3 RDW Std Deviation 58.6 H RDW Coeff of Nubia 15.7 H Plt Count 300 MPV 10.3 Sodium 134 L Potassium 3.9 Chloride 102 Carbon Dioxide 24 Anion Gap 8 BUN 9 Creatinine 0.75 Est Cr Clr Drug Dosing 97.2 eGFR 103.31 BUN/Creatinine Ratio 12.0 Glucose 113 H Calcium 8.4 L Fluid Crystals Cancelled Fluid Comment Synovial Source Pending Synovial Color Pending Synovial Appearance Pending Synovial Crystals Pending . Diagnostic Findings . Forearm X-Ray 06/06/25 17:29 Exam: 2 view right forearm. History: Right hand infection. Pain. Comparison:None. Findings: Vascular calcifications are noted. Mild diffuse demineralization. No discrete destructive osseous or joint process. Prominent osteophyte of the olecranon. Very small hyperdensity along the dorsal proximal superficial forearm soft tissues. This measures approximately 3 mm greatest dimension. Suspect calcification. There is increased soft tissue volume and attenuation of the dorsal medial aspect of the proximal forearm. No discrete soft tissue gas or fluid collection. Increase soft tissue volume attenuation overlying the olecranon. No radiopaque foreign body or discrete laceration. Impression: 1. Small superficial soft tissue calcification along the proximal dorsal forearm. Just ventral to this is a area of nonspecific soft tissue swelling. No discrete soft tissue gas. Correlate with clinical data. CT or MRI would be helpful for further characterization if indicated. 2. Prominent soft tissues overlying the olecranon with olecranon osteophyte. Olecranon bursitis not excluded. 3. Vascular calcifications. 4. No discrete destructive osseous or joint process. Electronically signed by Dion Dalton 06-06-2025 6:40 PM Hand X-Ray 06/06/25 17:29 Exam: 4 view right hand. History: Infection. Comparison:None. Findings: Vascular calcifications are noted. Remote fracture deformity of the fifth metatarsal neck. Mild diffuse soft tissue swelling of the hand. Larger focal region of increased soft tissue volume attenuation along the dorsal distal metatarsal aspect of the hand is noted. No discrete radiopaque foreign body or laceration. No destructive osseous or joint process. Impression: Mild nonspecific diffuse soft tissue swelling of the hand with superimposed focal region along the dorsal metatarsals. No discrete soft tissue gas or radiopaque foreign body. Correlate with clinical data. Electronically signed by Dion Dalton 06-06-2025 6:[address] 06/08/25 12:05 EXAM: CT Right Upper Extremity With Intravenous Contrast Hand INDICATION: Cellulitis TECHNIQUE: Axial computed tomography images of the right hand with intravenous contrast. Sagittal and coronal reformatted images were created and reviewed. This CT exam was performed using one or more of the following dose reduction techniques: automated exposure control, adjustment of the mA and/or kV according to patient size, and/or use of iterative reconstruction technique. CONTRAST: 93 ml of Optiray 320 was administered intravenously. COMPARISON: No relevant prior studies available. FINDINGS: Bones/joints: No acute osseous abnormality. Old fracture of the fifth metacarpal. No erosion. Soft tissues: Soft tissue swelling with dorsal abscess partially surrounding the extensor tendon sheath of the third finger continuing proximally tapering anterior to the proximal shaft of the 3rd and 4th metatarsals. The collection measures approximately 2.2 cm greatest transverse diameter, 1.1 cm greatest AP diameter and approximately 3 cm long. There is no associated gas. Vasculature: Atherosclerotic calcification noted. IMPRESSION: 1. 2.2 x 1.2 x 3.0 cm abscess beginning at the level of the dorsum of the third finger at the proximal interphalangeal joint and extending proximally anterior to the 3rd and 4th metacarpal shafts. 2. No acute osseous abnormality. ACT 112: N/A Electronically signed by Shirlene Leal 06-08-2025 2:35 PM PG Care Time/CCT Total # of Minutes Spent Total Time Spent with Patient: Total time spent is greater than 50% in coordination of care (as documented) at patient's floor/unit and/or counseling patient: Coding Level of Care Code 47271 IN/OBS CONSULT LVL 4,60M Diagnoses Abscess of right hand L02.511 Cellulitis of right hand L03.113 History of gout Z87.39 CPT Codes INCISION DRAINAGE SKIN ABSCESS SIMPLE/SINGLE - 05925 ([id number])
[2025-06-08] MEDS: GABAPENTIN 600 MG TAB PO SCH (23:15)
--- NOTE | 2025-06-09 08:04 | Orthopedic Progress Note ---
Date of Service June 09, 2025 Assessment & Plan (1) Abscess of right hand: * Continue Current Treatment * S/p bedside aspiration, gram stain/culture pending * May still need formal OR washout, will plan for 06/10 based on schedule * Ok for diet today, NPO midnight for possible OR tomorrow * Continue to monitor hand swelling, overall improved but still swelling to DIP/PIP * Continue IV abx * Weight bearing status: as tolerated * Pain control * DVT prophylaxis per primary team * Disposition: TBD * Remainder care per primary team * Will continue to follow Subjective . Active Problems: R hand abscess, S/p R hand aspiration 59 y/o male with right dorsal hand abscess s/p bedside aspiration yesterday. Doing well overall, pain managed and improved function. Overall feels that hand swelling and motion has improved from baseline but still significant swelling of the dorsal hand and 3rd finger PIP/DIP joints. Denies fever/chills, chest pain/SOB, nausea/vomiting. Otherwise no complaints. Review of Systems All systems reviewed & are unremarkable except as noted in HPI & below. Physical Exam . * General: Alert and oriented, no acute distress * Constitutional: well-developed, well-nourished. * Respiratory: Normal respiratory effort, no distress * Gastrointestinal: No tenderness to palpation, no rigidity or guarding. * Skin: No rash or lesion. * Neurologic: Grossly normal * Musculoskeletal: Right hand dressing removed. Aspiration site dorsal hand clean and without drainage. Diffuse mild soft tissue swelling dorsal hand, swelling of 3rd PIP and DIP joints. AROM finger flexion and extension mild limited due to swelling. Mild tenderness of the PI/DIP joints. Sensation intact radial/median/ulnar nerve distributions. Brisk capillary refill. Results & Data Results & Data Laboratory Results . Diagnostic Findings . PG Care Time/CCT Total # of Minutes Spent Total Time Spent with Patient: Total time spent is greater than 50% in coordination of care (as documented) at patient's floor/unit and/or counseling patient: Coding Level of Care Code 14740 SUB INP/OBS CARE 1/25MIN Medical Decision Making Straight Forward Diagnoses Abscess of right hand L02.511
[2025-06-09 12:05] LABS: Hematocrit (blood only) 42.4 % (42.0-52.0); Hemoglobin 14.4 g/dl (14.0-18.0); Mean Corpuscular Hemoglobin 34.5 pg (25.0-34.0); Mean Corpuscular Volume 101.7 fL (80.0-100.0); Platelet Count 360 K/uL (130-400); RDW Standard Deviation 59.2 fL (36.4-46.3); Red Blood Count 4.17 M/uL (4.70-6.10); White Blood Count 7.42 K/ul (4.8-10.8)
[2025-06-09 12:21] LABS: Anion Gap 8.0 (3-11); Blood Urea Nitrogen 9.0 mg/dl (6-23); Calcium 8.5 mg/dl (8.6-10.3); Carbon Dioxide 24.0 mmol/L (21-32); Chloride 103.0 mmol/L (98-107); Creatinine Clr Calc Pharmacy 90.2 ml/min; Glucose 107.0 mg/dl (70-99(Fasting)); Potassium 3.7 mmol/L (3.5-5.1); Sodium 135.0 mmol/L (136-145)
--- NOTE | 2025-06-09 15:12 | Hospitalist Progress Note ---
Date of Service June 09, 2025 Assessment & Plan (1) Cellulitis of right hand: (2) Right forearm cellulitis: (3) History of gout: (4) Alcohol withdrawal: (5) History of seizure due to alcohol withdrawal: Plan Patient is a 59-year-old male with past medical history of PE, colostomy status, fatty liver disease, alcohol use disorder, alcohol withdrawal seizure. patient presented due to a right finger infection that progressed up his right arm x5 days. He is being admitted for concern with rapid progression of cellulitis and for alcohol withdrawal. #right hand cellulitis - Concern for tenosynovitis given decreased range of motion on presentation to ED however resolved at time of admission. WC 13.70, ESR 76, CRP 6.87. Nonseptic - VSS. Diagnostic imaging revealed non-specific soft tissue swelling, no gas or foreign body. - pt initially covered broadly but deescalated to Ceftriaxone alone - MRSA neg Blood cultures ordered Tylenol as needed for pain - CT hand showing 2.2 x 1.2 x 3.0 cm abscess beginning at the level of the dorsum of the third finger at the proximal interphalangeal joint and extending proximally anterior to the 3rd and 4th metacarpal shafts - ortho recs appreciated - aspirated on 06/09, fluid sent to culture, plan for OR washout on 06/10 - ID consulted #gout - with chronic alcohol use disorder. Uric acid 7.6. Suspect contributing to above. - does not use allopurinol at baseline due to reaction - colchicine 0.6 mg BID started on admission #alcohol withdrawal - Typically drinks 1/2-3/4 pint of whiskey per day; last drink 9 PM 06/05. No symptoms of withdrawal on admission, hx of withdrawal seizure several years ago. - AWSS at risk protocol with IV Ativan - gabapentin taper ordered with history of seizures - continue home thiamine and folic acid supplements VTE ppx: Lovenox, hx of PE Dispo: PCU with history of alcohol withdrawal seizures , pending washout Admission and Anticipated Discharge Date Admission Date: June 06, 2025 Subjective He had his hand aspirated and fluid sent for cultures He offers no complaints today Review of Systems Review of Systems: Comprehensive ROS completed and is otherwise negative. Physical Exam Physical Exam: Gen: no acute distress, lying in bed comfortable HEENT: NC/AT, MMM Lungs: nonlabored breathing, CTAB CVS: s1s2nl, RRR Abd: nl bowel sounds, soft, NT / ND : no phillips Right hand: swelling present, erythema extending down the arm, pt able to move his digits but not able to make full fist yet (improving- however, dorsal area over the 3rd knuckle appears to be boggy / fluctuant) Ext: no edema Neuro: AAOx3 Psych: calm, cooperative Results & Data Results & Data Vital Signs (Past 12 Hours) Vital Signs Temp Pulse Pulse BP Pulse Ox O2 Del Method 06/09/25 11:31 36.6 C 56 L 147/82 H 99 Room Air 06/09/25 05:40 47 L PG Care Time/CCT Total # of Minutes Spent Total Time Spent with Patient: Total time spent is greater than 50% in coordination of care (as documented) at patient's floor/unit and/or counseling patient: Coding Level of Care Code 66506 SUB INP/OBS CARE 3/50MIN Diagnoses Cellulitis of right hand L03.113 Right forearm cellulitis L03.113 History of gout Z87.39 Alcohol withdrawal F10.230 Complication of substance-induced condition: uncomplicated History of seizure due to alcohol withdrawal Z87.898; Z86.59 (4) Alcohol withdrawal Complication of substance-induced condition: uncomplicated Qualified Code(s): F10.230 - Alcohol dependence with withdrawal, uncomplicated
[2025-06-10 07:53] LABS: Hematocrit (blood only) 40.4 % (42.0-52.0); Hemoglobin 14.3 g/dl (14.0-18.0); Mean Corpuscular Hemoglobin 35.2 pg (25.0-34.0); Mean Corpuscular Volume 99.5 fL (80.0-100.0); Platelet Count 370 K/uL (130-400); RDW Standard Deviation 56.3 fL (36.4-46.3); Red Blood Count 4.06 M/uL (4.70-6.10); White Blood Count 8.46 K/ul (4.8-10.8)
[2025-06-10 08:09] LABS: Anion Gap 8.0 (3-11); Blood Urea Nitrogen 10.0 mg/dl (6-23); Calcium 8.6 mg/dl (8.6-10.3); Carbon Dioxide 24.0 mmol/L (21-32); Chloride 103.0 mmol/L (98-107); Creatinine Clr Calc Pharmacy 96.9 ml/min; Glucose 106.0 mg/dl (70-99(Fasting)); Magnesium 2.0 mg/dl (1.7-2.4); Potassium 4.0 mmol/L (3.5-5.1); Sodium 135.0 mmol/L (136-145)
--- NOTE | 2025-06-10 09:59 | Orthopedic Progress Note ---
Date of Service June 10, 2025 Assessment & Plan (1) Abscess of right hand: * Attempted bedside aspiration on dorsal aspect of right hand around MCP, area was cleansed with alcohol and an 18 gauge needle was used to attempt aspiration of fluid in a sterile fashion. A small amount of blood was present in needle hub. Hand was dressed with sterile gauze and aranza bandage. * Continue Current Treatment * S/p bedside aspiration from 06/08, gram stain/culture no organism seen no growth to date. * Continue to monitor hand swelling, overall improved but still swelling at PIP * Continue IV abx * Recommend some warm soaks of hand and elevated on foam block. * Weight bearing status: as tolerated * Pain control * DVT prophylaxis per primary team * Disposition: TBD * Remainder care per primary team * Will continue to follow (2) Cellulitis of right hand: Subjective Active Problems: R hand abscess, S/p R hand aspiration 59 y/o male with right dorsal hand abscess s/p bedside aspiration 06/08/25. Doing well overall, pain managed and improved function. Overall feels that hand swelling and motion has improved from baseline but still significant swelling of the 3rd finger MCP/PIP joints. Denies fever/chills, chest pain/SOB, nausea/vomiting. Otherwise no complaints. Review of Systems All systems reviewed & are unremarkable except as noted in HPI & below. Physical Exam . * General: Alert and oriented, no acute distress * Constitutional: well-developed, well-nourished. * Respiratory: Normal respiratory effort, no distress * Gastrointestinal: No tenderness to palpation, no rigidity or guarding. * Skin: No rash or lesion. * Neurologic: Grossly normal * Musculoskeletal: Right hand dressing removed. Aspiration site dorsal hand clean and without drainage. Diffuse mild soft tissue swelling dorsal hand, majority of swelling is localized to PIP of 3rd digit. AROM finger flexion and extension mildly limited due to swelling. Pt is still able to make a fist and fully extend. Mild tenderness of the MCP/pIP joints. Sensation intact radial/median/ulnar nerve distributions. Brisk capillary refill. Results & Data Results & Data Laboratory Results Laboratory Results - last 24 hr 06/09/25 06/10/25 10:34 07:27 WBC 7.42 8.46 RBC 4.17 L 4.06 L Hgb 14.4 14.3 Hct 42.4 40.4 L MCV 101.7 H 99.5 MCH 34.5 H 35.2 H MCHC 34.0 35.4 RDW Std Deviation 59.2 H 56.3 H RDW Coeff of Nubia 15.7 H 15.2 H Plt Count 360 370 MPV 9.8 9.5 Sodium 135 L 135 L Potassium 3.7 4.0 Chloride 103 103 Carbon Dioxide 24 24 Anion Gap 8 8 BUN 9 10 Creatinine 0.81 0.75 Est Cr Clr Drug Dosing 90.2 96.9 eGFR 100.94 103.31 BUN/Creatinine Ratio 11.1 13.3 Glucose 107 H 106 H Calcium 8.5 L 8.6 Phosphorus 3.1 Magnesium 2.0 . Diagnostic Findings Forearm X-Ray 06/06/25 17:29 Exam: 2 view right forearm. History: Right hand infection. Pain. Comparison:None. Findings: Vascular calcifications are noted. Mild diffuse demineralization. No discrete destructive osseous or joint process. Prominent osteophyte of the olecranon. Very small hyperdensity along the dorsal proximal superficial forearm soft tissues. This measures approximately 3 mm greatest dimension. Suspect calcification. There is increased soft tissue volume and attenuation of the dorsal medial aspect of the proximal forearm. No discrete soft tissue gas or fluid collection. Increase soft tissue volume attenuation overlying the olecranon. No radiopaque foreign body or discrete laceration. Impression: 1. Small superficial soft tissue calcification along the proximal dorsal forearm. Just ventral to this is a area of nonspecific soft tissue swelling. No discrete soft tissue gas. Correlate with clinical data. CT or MRI would be helpful for further characterization if indicated. 2. Prominent soft tissues overlying the olecranon with olecranon osteophyte. Olecranon bursitis not excluded. 3. Vascular calcifications. 4. No discrete destructive osseous or joint process. Electronically signed by Dion Dalton 06-06-2025 6:40 PM Hand X-Ray 06/06/25 17:29 Exam: 4 view right hand. History: Infection. Comparison:None. Findings: Vascular calcifications are noted. Remote fracture deformity of the fifth metatarsal neck. Mild diffuse soft tissue swelling of the hand. Larger focal region of increased soft tissue volume attenuation along the dorsal distal metatarsal aspect of the hand is noted. No discrete radiopaque foreign body or laceration. No destructive osseous or joint process. Impression: Mild nonspecific diffuse soft tissue swelling of the hand with superimposed focal region along the dorsal metatarsals. No discrete soft tissue gas or radiopaque foreign body. Correlate with clinical data. Electronically signed by Dion Dalton 06-06-2025 6:[address] 06/08/25 12:05 EXAM: CT Right Upper Extremity With Intravenous Contrast Hand INDICATION: Cellulitis TECHNIQUE: Axial computed tomography images of the right hand with intravenous contrast. Sagittal and coronal reformatted images were created and reviewed. This CT exam was performed using one or more of the following dose reduction techniques: automated exposure control, adjustment of the mA and/or kV according to patient size, and/or use of iterative reconstruction technique. CONTRAST: 93 ml of Optiray 320 was administered intravenously. COMPARISON: No relevant prior studies available. FINDINGS: Bones/joints: No acute osseous abnormality. Old fracture of the fifth metacarpal. No erosion. Soft tissues: Soft tissue swelling with dorsal abscess partially surrounding the extensor tendon sheath of the third finger continuing proximally tapering anterior to the proximal shaft of the 3rd and 4th metatarsals. The collection measures approximately 2.2 cm greatest transverse diameter, 1.1 cm greatest AP diameter and approximately 3 cm long. There is no associated gas. Vasculature: Atherosclerotic calcification noted. IMPRESSION: 1. 2.2 x 1.2 x 3.0 cm abscess beginning at the level of the dorsum of the third finger at the proximal interphalangeal joint and extending proximally anterior to the 3rd and 4th metacarpal shafts. 2. No acute osseous abnormality. ACT 112: N/A Electronically signed by Shirlene Leal 06-08-2025 2:35 PM . PG Care Time/CCT Total # of Minutes Spent Total Time Spent with Patient: Total time spent is greater than 50% in coordination of care (as documented) at patient's floor/unit and/or counseling patient: Coding Level of Care Code 43646 SUB INP/OBS CARE 3/50MIN Diagnoses Abscess of right hand L02.511 Cellulitis of right hand L03.113
--- NOTE | 2025-06-10 11:18 | Hospitalist Progress Note ---
Date of Service June 10, 2025 Assessment & Plan (1) Cellulitis of right hand: (2) Right forearm cellulitis: (3) History of gout: (4) Alcohol withdrawal: (5) History of seizure due to alcohol withdrawal: Plan Patient is a 59-year-old male with past medical history of PE, colostomy status, fatty liver disease, alcohol use disorder, alcohol withdrawal seizure. patient presented due to a right finger infection that progressed up his right arm x5 days. He is being admitted for concern with rapid progression of cellulitis and for alcohol withdrawal. #Right hand cellulitis - Concern for tenosynovitis given decreased range of motion on presentation to ED however resolved at time of admission. WC 13.70, ESR 76, CRP 6.87. Nonseptic - VSS. Diagnostic imaging revealed non-specific soft tissue swelling, no gas or foreign body. - pt initially covered broadly but deescalated to Ceftriaxone alone on 06/07 - MRSA neg Blood cultures NGTD Tylenol as needed for pain - CT hand showing 2.2 x 1.2 x 3.0 cm abscess beginning at the level of the dorsum of the third finger at the proximal interphalangeal joint and extending proximally anterior to the 3rd and 4th metacarpal shafts - ortho recs appreciated - aspirated on 06/09, fluid sent to culture, gram stain negative, cultures pending - ID consulted to assist with abx guidance and duration #gout - with chronic alcohol use disorder. Uric acid 7.6. Suspect contributing to above. - does not use allopurinol at baseline due to reaction - colchicine 0.6 mg BID started on admission #alcohol withdrawal - Typically drinks 1/2-3/4 pint of whiskey per day; last drink 9 PM 06/05. No symptoms of withdrawal on admission, hx of withdrawal seizure several years ago. - AWSS at risk protocol with IV Ativan - gabapentin taper ordered with history of seizures - continue home thiamine and folic acid supplements VTE ppx: Lovenox, hx of PE Dispo: PCU with history of alcohol withdrawal seizures , pending ortho / ID clearance Admission and Anticipated Discharge Date Admission Date: June 06, 2025 Review of Systems Review of Systems: Comprehensive ROS completed and is otherwise negative. Physical Exam Physical Exam: Gen: no acute distress, sitting in bed comfortable HEENT: NC/AT, MMM Lungs: nonlabored breathing, CTAB CVS: s1s2nl, RRR Abd: nl bowel sounds, soft, +colostomy, NT / ND : no phillips Right hand: swelling on the dorsal aspect of the hand is improved (currently wrapped), the swelling around his 3rd finger however is increased today Ext: no edema Neuro: AAOx3 Psych: calm, cooperative Results & Data Results & Data Vital Signs (Past 12 Hours) Vital Signs Temp Pulse Pulse Resp BP Pulse Ox O2 Del Method 06/10/25 07:21 36.7 C 50 L 18 147/80 H 99 Room Air 06/10/25 07:00 47 L 06/10/25 02:24 36.7 C 51 L 18 128/79 98 Room Air 06/10/25 00:00 60 PG Care Time/CCT Total # of Minutes Spent Total Time Spent with Patient: Total time spent is greater than 50% in coordination of care (as documented) at patient's floor/unit and/or counseling patient: Coding Level of Care Code 08979 SUB INP/OBS CARE 2/35MIN Diagnoses Cellulitis of right hand L03.113 Right forearm cellulitis L03.113 History of gout Z87.39 Alcohol withdrawal F10.230 Complication of substance-induced condition: uncomplicated History of seizure due to alcohol withdrawal Z87.898; Z86.59 (4) Alcohol withdrawal Complication of substance-induced condition: uncomplicated Qualified Code(s): F10.230 - Alcohol dependence with withdrawal, uncomplicated
[2025-06-10] MEDS: GABAPENTIN 600 MG TAB PO SCH (12:53)
[2025-06-10] MEDS ORDERED: VANCOMYCIN CONSULT ACTIVE PRN (13:24)
--- NOTE | 2025-06-10 13:54 | Infectious Disease Consult ---
Date of Consultation June 10, 2025 Assessment & Plan (1) Abscess of right hand: (2) Septic finger of right hand: Plan ID Problem List: # R dorsal hand abscess, 3rd PIP and MCP swelling c/f possible septic arthritis # EtOH use disorder, EtOH withdrawal Impression: Miguel Núñez is a 59-year-old man with history of PE, s/p colostomy, fatty liver disease, EtOH use disorder with history of alcohol withdrawal seizure, who presents to [facility] on 06/06/25 with R finger and hand pain as well as EtOH withdrawal, found to have a 2.2 x 1.2 x 3.0 cm R dorsal hand abscess s/p bedside aspiration on 06/08 (Cx NGTD) and ongoing R MCP/PIP swelling. ID is consulted for R hand abscess and possible R MCP/PIP septic arthritis. The patient developed redness, swelling, and pain of his R middle finger about ~5 days [employer]. The redness and swelling progressed to involve most of his hand and his R arm. The patient reports that in March 2025, he believes that he may have sustained a spider bite on his R ring finger which became filled with pus, then spontaneously drained then resolved; this was followed by skin sloughing and then resolution. No fevers or chills. He also does have a history of gout but was unable to tolerate allopurinol for maintenance. He drinks 1/2-3/4 of a pint of alcohol a day. Upon arrival, afebrile, WBC 13.7. 06/08 CT R hand showed an 2.2 x 1.2 x 3.0 cm abscess beginning at the level of the dorsum of the third finger at the proximal interphalangeal joint and extending proximally anterior to the 3rd and 4th metacarpal shafts; no osseous abnormality. He underwent bedside aspiration on 06/08 which yielded 4 mL of thick purulent fluid. 06/08 Cx remain NGTD, g/s with no organisms. Given ongoing R 3rd finger MCP and PIP swelling, a repeat aspiration attempt was made on 06/10 at the dorsal R hand around the MCP, but the attempt was unsuccessful and yielded only a small amount of blood in the needle hub. 06/06 BCx remain NGTD. At the time of evaluation, the patient reports that his hand has overall improved, though he still has significant swelling in his R 3rd finger MCP/PIP joints, especially after the unsuccessful aspiration attempt on 06/10. He does not have a prior history of recurrent Staph/MRSA infections to his knowledge. He does not have any hardware/implants in place. Discussion Pt presenting with large dorsal R hand abscess, which has improved significantly with abx and drainage. 06/06 BCx remain NGTD. The bedside aspiration Cx from 06/08 remain NGTD, however the pt had received vancomycin and cefepime ~2d prior to the specimen being obtained, which may have decreased the culture yield. Pt with negative MRSA nares, though this can be discordant from SSTI. Out of caution, given the delicate structures/possible component of R finger septic arthritis, and given the purulent, abscess-forming process, will broaden coverage to include MRSA as well as MSSA/Strep, and also cover for polymicrobial infection as well. Can continue vancomycin and amp/sulb while inpatient. If improving and will be discharging, then if Cx remain NG, can change to doxycycline 100 mg PO BID and amox-clav 875 mg PO BID to complete a 4-week course. Interestingly, pt had a pus-filled boil on his R ring finger in 03/2025, and thus raise the possibility of Staph aureus infection. Pt does not report a history of recurrent Staph infections previously, but out of caution could consider Staph/MRSA decolonization after completion of abx therapy. Recommendations: - Restart IV vancomycin (dosing per Rx) - Change to amp/sulbactam 3g IV q6h - If improving and will be discharging, if Cx remain NG, then can change to doxycycline 100 mg PO BID and amox-clav 875 mg PO BID to complete a 4-week course (through 07/05/25) - F/u 06/08 bedside aspiration Cx until finalized - Ensure close f/u with PCP and orthopedic surgery - After completion of abx treatment as above, would recommend Staph/MRSA decolonization (see below for suggested protocol): Staph/MRSA decolonization protocol Perform decolonization of all household members simultaneously. (1) Nasal decolonization: mupirocin ointment (2%) - Apply twice a day to each nostril (each household member should have a separate one) for 5 days (2) Topical body decolonization: chlorhexidine gluconate (Hibiclens) (2% or 4% solution) washes - Wet body. Turn off water and put Hibiclens all over body from the neck down, with special attention to underarms and groin. Wait 3-5 minutes, then wash off Hibiclens. Do this daily for 5 days. - Bathroom: Daily Clorox bleach to shower/bathroom. - Gym: Ok to go to gym, but wash off equipment before and after use. Do not stay in sweaty clothes; immediately shower after exercise. Do not re-wear sweaty clothes. - Laundry: Wash towels/washcloths/sheets/underwear/sweaty clothes after each use in hot water and color-safe bleach. Do not share towels or washcloths. - Personal hygiene products: Throw out deodorant and razors now. Avoid loofahs. Only use razors for 1 week at a time. If you develop cellulitis (skin infection), get rid of deodorant and razors again. ID will continue to follow. Lila Kim MD, MHS Infectious Diseases [facility] direct line: [phone] Consultation Information Consultation was provided via telemedicine using two-way real-time interactive telecommunication between the patient and the telemedicine provider. For the duration of the visit, the provider was performing the assessment from a different facility than the patient. This includesuse of bluetooth stethoscope forauscultationperformed by the telepresenter that the telemedicine provider can hear if described in the physical exam. Privacy Officer contact information: Please call [facility] Call Center [phone]. (Phone Number For Physician Use Only) After establishing a telemedicine visit, patient was: Patient was verified with two unique identifiers, Patient/authorized rep acknowledged consent and understanding and Gave permission to continue telehealth session Time Spent with Patient: Initial => 75 min History of Present Illness Attending Physician: Sebastian Garcia MD History of Present Illness Miguel Núñez is a 59-year-old man with history of PE, s/p colostomy, fatty liver disease, EtOH use disorder with history of alcohol withdrawal seizure, who presents to [facility] on 06/06/25 with R finger and hand pain as well as EtOH withdrawal, found to have a 2.2 x 1.2 x 3.0 cm R dorsal hand abscess s/p bedside aspiration on 06/08 (Cx NGTD) and ongoing R MCP/PIP swelling. ID is consulted for R hand abscess and possible R MCP/PIP septic arthritis. The patient developed redness, swelling, and pain of his R middle finger about ~5 days [employer]. The redness and swelling progressed to involve most of his hand and his R arm. The patient reports that in March 2025, he believes that he may have sustained a spider bite on his R ring finger which became filled with pus, then spontaneously drained then resolved; this was followed by skin sloughing and then resolution. No fevers or chills. He also does have a history of gout but was unable to tolerate allopurinol for maintenance. He drinks 1/2-3/4 of a pint of alcohol a day. Upon arrival, afebrile, WBC 13.7. 06/08 CT R hand showed an 2.2 x 1.2 x 3.0 cm abscess beginning at the level of the dorsum of the third finger at the proximal interphalangeal joint and extending proximally anterior to the 3rd and 4th metacarpal shafts; no osseous abnormality. He underwent bedside aspiration on 06/08 which yielded 4 mL of thick purulent fluid. 06/08 Cx remain NGTD, g/s with no organisms. Given ongoing R 3rd finger MCP and PIP swelling, a repeat aspiration attempt was made on 06/10 at the dorsal R hand around the MCP, but the attempt was unsuccessful and yielded only a small amount of blood in the needle hub. 06/06 BCx remain NGTD. At the time of evaluation, the patient reports that his hand has overall improved, though he still has significant swelling in his R 3rd finger MCP/PIP joints, especially after the unsuccessful aspiration attempt on 06/10. He does not have a prior history of recurrent Staph/MRSA infections to his knowledge. He does not have any hardware/implants in place. Allergies Allergy/AdvReac Type Severity Reaction Status Date / Time No Known Allergies Allergy Verified 06/06/25 20:49 Home Medications Medication Instructions Recorded Confirmed Type acetaminophen 325 mg tablet 325 mg PO Q8H PRN Pain 06/06/25 06/06/25 History (Tylenol) naproxen sodium 220 mg tablet 220 mg PO DAILY PRN Pain 06/06/25 06/06/25 History (Aleve) Patient History Medical History Alcohol withdrawal Alcoholic fatty liver Colonic obstruction (07/26/14) Colostomy in place Pulmonary emboli Family History Other Family history non-contributory Social History Smoking Status: Never smoker Tobacco Type: Smokeless Tobacco (Dip or Chew) Do You Dip or Chew Tobacco: Yes; Hx Alcohol Use: Yes Alcohol type: hard liquor Hx Substance Use: No Preferred Language: Bengali Communication Ability: Effective Home Health Aide Required: No Beliefs That Will Affect Care: None marital status: Current Living Situation: Spouse Feels Safe at Home: Yes Safety Concerns: Feels Safe At This Time Assistive Devices: None Physical Exam Physical Exam: Exam obtained with assistance of an in-person telepresenter General: Well-appearing, no acute distress HEENT: Conjunctivae non-injected, sclerae anicteric, MMM, OP clear. Resp: Respirations nonlabored. Ext: R hand in dressings. R middle finger with MCP and PIP swelling, minimal erythema. Skin: No rashes or lesions. Neuro: Alert & interactive. Grossly non-focal. Psych: Pleasant, appropriate. Results & Data Vital Signs (Past 12 Hours) Vital Signs Temp Pulse Pulse Resp BP Pulse Ox O2 Del Method 06/10/25 11:37 36.5 C 56 L 20 162/85 H 98 Room Air 06/10/25 07:21 36.7 C 50 L 18 147/80 H 99 Room Air 06/10/25 07:00 47 L 06/10/25 02:24 36.7 C 51 L 18 128/79 98 Room Air Laboratory Results Diagnostics: 06/08/25 CT R hand 1. 2.2 x 1.2 x 3.0 cm abscess beginning at the level of the dorsum of the third finger at the proximal interphalangeal joint and extending proximally anterior to the 3rd and 4th metacarpal shafts. 2. No acute osseous abnormality. Micro Data: 06/08 R hand Cx (bedside aspiration): NGTD; g/s no organisms 06/07 MRSA nares: neg 06/06 BCx x2: NGTD Antibiotic Summary: vancomycin (06/06, 06/10 present) amp/sulb (06/10 present) prior ceftriaxone (06/06 06/09) cefepime (06/06)
--- NOTE | 2025-06-10 15:13 | Pharmacy Report ---
Pharmacy PK ABX Note - Date of Service June 10, 2025 - Assessment and Plan Assessment 59 year old M originally receiving empiric vancomycin + ceftriaxone IV for treatment of right hand cellulitis with concern for tenosynovitis due to decreased range of motion on presentation to ED. De-escalated to ceftriaxone monotherapy. ID consulted and added back vancomycin and changed ceftriaxone to ampicillin/sulbactam. Bedside aspiration on 06/08 - aspirate contained ~4 mL of thick purulent fluid. Blood cultures x 2 (06/06/25) no growth at 48 hours, right hand culture (06/08/25) shows no growth to date (no organisms on gram-stain). Of note, patient had been on IV antibiotics prior to hand culture. Plan Vancomycin * Loading Dose: 1500 mg IV x 1 (~23 mg/kg) * Maintenance Dose: 1 g IV q8h * Predicted AUC at steady state: 511 mg/L.hr * Will plan to order vanco level on 06/12/25 if therapy continues Pharmacy will continue to follow and will adjust dose/frequency as necessary. Thank you. Pharmacy has transitioned to AUC monitoring for vancomycin. AUC/TRACEY is the preferred PK/PD target and is associated with decreased risk of nephrotoxicity compared to traditional trough targets.
[2025-06-10] MEDS: VANCOMYCIN HCL 1,500 MG in SODIUM CHLORIDE 0.9% 500 ML IV STA (15:16)
[2025-06-10] MEDS: AMPICILLIN/SULBACTAM SOD 3,000 MG/100 ML BAG IV SCH (15:26)
[2025-06-11] MEDS: VANCOMYCIN 750 MG in SODIUM CHLORIDE 0.9% 250 ML IV SCH (01:05)
[2025-06-11 07:46] LABS: Hematocrit (blood only) 39.4 % (42.0-52.0); Hemoglobin 13.6 g/dl (14.0-18.0); Mean Corpuscular Hemoglobin 34.6 pg (25.0-34.0); Mean Corpuscular Volume 100.3 fL (80.0-100.0); Platelet Count 372 K/uL (130-400); RDW Standard Deviation 57.1 fL (36.4-46.3); Red Blood Count 3.93 M/uL (4.70-6.10); White Blood Count 7.94 K/ul (4.8-10.8)
[2025-06-11 08:11] LABS: Anion Gap 7.0 (3-11); Blood Urea Nitrogen 10.0 mg/dl (6-23); Calcium 8.3 mg/dl (8.6-10.3); Carbon Dioxide 24.0 mmol/L (21-32); Chloride 106.0 mmol/L (98-107); Creatinine Clr Calc Pharmacy 103.7 ml/min; Glucose 101.0 mg/dl (70-99(Fasting)); Magnesium 1.9 mg/dl (1.7-2.4); Potassium 3.9 mmol/L (3.5-5.1); Sodium 137.0 mmol/L (136-145)
--- NOTE | 2025-06-11 09:03 | Orthopedic Progress Note ---
Date of Service June 11, 2025 Assessment & Plan (1) Abscess of right hand: * Continue Current Treatment * S/p bedside aspiration from 06/08, gram stain/culture no organism seen no growth to date. * Continue to monitor hand swelling, overall improved but still swelling at PIP * Appreciate ID recommendations. Transition to oral abx * No plan for OR at this point, from ortho standpoint ok for discharge and outpatent monitoring * Continue IV abx * Recommend some warm soaks of hand and elevated on foam block. * Weight bearing status: as tolerated * Pain control * DVT prophylaxis * Disposition: TBD * Remainder care per primary team (2) Cellulitis of right hand: Subjective Active Problems: R hand abscess, S/p R hand aspiration 59 y/o male with right dorsal hand abscess s/p bedside aspiration 06/08/25. Doing well overall, pain managed and improved function. Overall feels that hand swelling and motion has improved from baseline but still significant swelling of the 3rd finger MCP/PIP joints. Denies fever/chills, chest pain/SOB, nausea/vomiting. Otherwise no complaints. Repeat aspiration attempt yesterday without any fluid. Review of Systems All systems reviewed & are unremarkable except as noted in HPI & below. Physical Exam * Musculoskeletal: Right hand dressing removed. Aspiration site dorsal hand clean and without drainage. Diffuse mild soft tissue swelling dorsal hand, majority of swelling is localized to PIP of 3rd digit. AROM finger flexion and extension mildly limited due to swelling. Pt is still able to make a fist and fully extend. Mild tenderness of the MCP/PIP joints. Sensation intact radial/median/ulnar nerve distributions. Brisk capillary refill. Results & Data Results & Data Laboratory Results . 06/11/25 07:15 WBC 7.94 RBC 3.93 L Hgb 13.6 L Hct 39.4 L MCV 100.3 H MCH 34.6 H MCHC 34.5 RDW Std Deviation 57.1 H RDW Coeff of Nubia 15.4 H Plt Count 372 MPV 9.6 Sodium 137 Potassium 3.9 Chloride 106 Carbon Dioxide 24 Anion Gap 7 BUN 10 Creatinine 0.72 Est Cr Clr Drug Dosing 103.7 eGFR 104.59 BUN/Creatinine Ratio 13.9 Glucose 101 H Calcium 8.3 L Phosphorus 3.0 Magnesium 1.9 Diagnostic Findings . PG Care Time/CCT Total # of Minutes Spent Total Time Spent with Patient: Total time spent is greater than 50% in coordination of care (as documented) at patient's floor/unit and/or counseling patient: C[place] [address] SUB INP/OBS CARE 09/07MIN Patient Type Established History Problem Focused Exam Problem Focused Medical Decision Making Straight Forward Diagnoses Abscess of right hand L02.511 Cellulitis of right hand L03.113
[2025-06-11 11:42] VITALS: RESP 18; TEMP 98.1; O2SAT 99
--- NOTE | 2025-06-11 11:59 | Discharge Summary ---
Discharge Summary Date of Service June 11, 2025 Principal Dx & Hospital Course #1 = Principal Diagnosis (1) Cellulitis of right hand: (2) Right forearm cellulitis: (3) History of gout: (4) Alcohol withdrawal: (5) History of seizure due to alcohol withdrawal: Plan Patient is a 59-year-old male with past medical history of PE, colostomy status, fatty liver disease, alcohol use disorder, alcohol withdrawal seizure. patient presented due to a right finger infection that progressed up his right arm x5 days. He is being admitted for concern with rapid progression of cellulitis and for alcohol withdrawal. #Right hand cellulitis and abscess - Concern for possible septic arthritis 3rd PIP and MCP, tenosynovitis given decreased range of motion WC 13.70, ESR 76, CRP 6.87. Bedside I&D by ortho Cultures no growth Treated with unasyn/CTX and vancomycin. ID consulted - rec oral augmentin and doxy through 07/05/25 which is 4 weeks Ortho clinic will call him for follow up #gout - possible gout flare - with chronic alcohol use disorder. Uric acid 7.6. Suspect contributing to above. - does not use allopurinol at baseline due to reaction - colchicine 0.6 mg BID for a week then decrease to daily prophylaxis dosing. Can't tolerate allopurinol without continuous flaring - follow up in primary care, recently established #at risk for alcohol withdrawal - Typically drinks 1/2-3/4 pint of whiskey per day; last drink 9 PM 06/05. No symptoms of withdrawal on admission, hx of withdrawal seizure several years ago. - gabapentin taper while in hospital - no evidence of severe withdrawal Admission HPI Per Admitting Provider Patient is a 59-year-old male with past medical history of PE, colostomy status, fatty liver disease, alcohol use disorder, alcohol withdrawal seizure. patient presented due to a right finger infection that progressed up his right arm x5 days. He is being admitted for concern for tenosynovitis and alcohol withdrawal. Patient seen at bedside with his present. Patient stated on Monday he developed right middle finger erythema which then started to progress of his hand and arm movement Monday discussed. It was painful and he was struggling to move his fingers today. His movement has improved after biotics and Tylenol in the ED. Patient denies any trauma or bite to his extremity. He did have a suspected brown recluse spider bite to his right ring finger in March however was resolved prior to this. He denies any fevers or chills. There is also concern for alcohol withdrawal given patient drinks 1/2-3/4 of a pint of whiskey per day. He does have a history of an alcohol withdrawal seizure several years ago. His last drink was at 9 PM last night. He denies any current signs or symptoms of withdrawal. He is agreeable to detox while he has admitted. He also endorses snuff use however declines need for nicotine patch at this time. He does have a past medical history of gout and does not take allopurinol because he stated it made it worse after treatment for 4 months. He is no longer on anticoagulation for PE. He wishes to be full code. Patient denies fever, chills, cough, dyspnea, chest pain, abdominal pain, nausea, heart palpitations, anxiety. Discharge Exam Thin body habitus Jasmeet derm on face Appears comfortable R hand swelling - diffuse and dorsum, significant 3rd PIP and MCP swelling. Able to flex and extend fingers - this has improved Discharge Plan Discharge Items Patient Disposition: Home - Self-Care Reason For Visit: RIGHT HAND CELLULITIS, ALC WITHDRAWAL/ETOX Discharge Diagnosis: Right hand infection Condition on Discharge: Fair Activity: Per Instructions section Non-emergency contact: Primary Care Provider and Surgeon Call non-emergency contact if: you have any medication questions, your symptoms worsen and you have a fever Follow-up/Referrals: Aguilar Bird MD [Physician] - 06/27/25 10:30 am Arik Baig MD [Primary Care Provider] - Diet: Regular Addtl Attending Provider Instructions: You were treated for hand infection Keep hand elevated to promote healing and drainage Continue warm water soaks of hand a few times a day until symptoms significantly improved Call and scheduled follow up with ortho Dr. Bird within 2 weeks Continue antibiotics: doxycycline 100 mg twice a day and amoxicillin-clavulanate 875 mg twice a day through 07/05/25 finish a few more days of colchicine for possible gout flare You can take a probiotic for 2-4 weeks to prevent antibiotic associated diarrhea. These are available over the counter. If you have rash or severe diarrhea after/while taking antibiotics, call your doctor. Diarrhea associated with broad spectrum antibiotics can occur up to six months following antibiotics. If you have significant ongoing diarrhea, especially with abdominal pain or fever, seek medical attention. After completion of the above antibiotics, consider staph/MRSA decolonization protocol: Perform decolonization of all household members simultaneously. (1) Nasal decolonization: mupirocin ointment (2%) - Apply twice a day to each nostril (each household member should have a separate one) for 5 days (2) Topical body decolonization: chlorhexidine gluconate (Hibiclens) (2% or 4% solution) washes - Wet body. Turn off water and put Hibiclens all over body from the neck down, with special attention to underarms and groin. Wait 3-5 minutes, then wash off Hibiclens. Do this daily for 5 days. - Bathroom: Daily Clorox bleach to shower/bathroom. - Gym: Ok to go to gym, but wash off equipment before and after use. Do not stay in sweaty clothes; immediately shower after exercise. Do not re-wear sweaty clothes. - Laundry: Wash towels/washcloths/sheets/underwear/sweaty clothes after each use in hot water and color-safe bleach. Do not share towels or washcloths. - Personal hygiene products: Throw out deodorant and razors now. Avoid loofahs. Only use razors for 1 week at a time. If you develop cellulitis (skin infection), get rid of deodorant and razors again. It was a pleasure taking care of you in the hospital, Tania Cook MD Pending Studies at Discharge: Yes (final cultures) Stand-Alone Forms: [facility], Work/School Release, Smoking Cessation Medications and DC Order Prescriptions: New doxycycline hyclate 100 mg tablet 100 mg PO BID 25 Days Qty: 50 0RF amoxicillin-pot clavulanate 875-125 mg tablet 1 tab PO BID 25 Days Qty: 50 0RF colchicine 0.6 mg tablet See Rx Instructions .ROUTE .COMPLEX Qty: 35 0RF Rx Instructions: twice a day for five days then decrease to once a day Continued acetaminophen [Tylenol] 325 mg Tablet 325 mg PO Q8H PRN (Reason: Pain) naproxen sodium [Aleve] 220 mg Tablet 220 mg PO DAILY PRN (Reason: Pain) Discharge Orders: Discharge Order (Routine); Ordered 06/11/25 Ordered By: Tania Cook Admission Data Admit Date/Time: 06/06/25 20:33 Attending Provider: Tania Cook Admit Provider: Sebastian Garcia Primary Care Provider: Arik Baig Other Providers: Sebastian Garcia; Rima Clifton Other Interventions: Discharge Summary Assessment (RN) Last Done: 06/11/25 13:24 Hospital Stay Data Consultations 06/06/25 19:49 ED Decision to Admit Stat 06/08/25 15:40 Consult Orthopedic Surgery Routine 06/09/25 13:51 Consult Infectious Diseases Routine Diagnostic Imagining Performed 06/08/25 12:05 CT hand RT w con Urgent Pending Results Patient Have Any Pending Studies at Discharge: Yes (final cultures) Discharge Instructions Given to Patient (Per Discharging Provider) You were treated for hand infection Keep hand elevated to promote healing and drainage Continue warm water soaks of hand a few times a day until symptoms significantly improved Call and scheduled follow up with ortho Dr. Bird within 2 weeks Continue antibiotics: doxycycline 100 mg twice a day and amoxicillin-clavulanate 875 mg twice a day through 07/05/25 finish a few more days of colchicine for possible gout flare You can take a probiotic for 2-4 weeks to prevent antibiotic associated diarrhea. These are available over the counter. If you have rash or severe diarrhea after/while taking antibiotics, call your doctor. Diarrhea associated with broad spectrum antibiotics can occur up to six months following antibiotics. If you have significant ongoing diarrhea, especially with abdominal pain or fever, seek medical attention. After completion of the above antibiotics, consider staph/MRSA decolonization protocol: Perform decolonization of all household members simultaneously. (1) Nasal decolonization: mupirocin ointment (2%) - Apply twice a day to each nostril (each household member should have a separate one) for 5 days (2) Topical body decolonization: chlorhexidine gluconate (Hibiclens) (2% or 4% solution) washes - Wet body. Turn off water and put Hibiclens all over body from the neck down, with special attention to underarms and groin. Wait 3-5 minutes, then wash off Hibiclens. Do this daily for 5 days. - Bathroom: Daily Clorox bleach to shower/bathroom. - Gym: Ok to go to gym, but wash off equipment before and after use. Do not stay in sweaty clothes; immediately shower after exercise. Do not re-wear sweaty clothes. - Laundry: Wash towels/washcloths/sheets/underwear/sweaty clothes after each use in hot water and color-safe bleach. Do not share towels or washcloths. - Personal hygiene products: Throw out deodorant and razors now. Avoid loofahs. Only use razors for 1 week at a time. If you develop cellulitis (skin infection), get rid of deodorant and razors again. It was a pleasure taking care of you in the hospital, Tania Cook MD Supervising Physician Co-Signing Physician Notes Attending addendum: I have physically seen this patient, have supervised the NITA's activities, and agree with the H&P unless as otherwise noted. Assessment and Plan: The patient is a 59-year-old male with past medical history including PE, colostomy status, fatty liver disease, alcohol use disorder, and alcohol withdrawal seizures. He presented to the emergency department due to right finger infection that has now progressed up his right past 5 days. Right hand cellulitis- Consideration for developing tenosynovitis X-rays with nonspecific soft tissue swelling, without gas or foreign body Given ceftriaxone 2 g IV in ED Placed on vancomycin IV and cefepime IV Follow-up blood culture and sensitivity Acetaminophen 650 mg by mouth every 6 hours as needed for mild pain or fever Serial laboratories as noted Gout/hyperuricemia- Uric acid 7.6 on admission Start colchicine 0.6 mg p.o. twice daily alcohol withdrawal AWSS protocol Will start gabapentin due to seizure history as well. Continue thiamine and folic acid Remaining orders and notations as noted Total Time Total Time Spent Total Time Spent (In Minutes): I personally spent: 35 minutes today on clinical care activities including: reviewing chart notes and vital signs reviewing micro reviewing animal nutrition consultant(s) recs examining and counseling the patient writing prescriptions, discharge instructions documentation Coding Level of Care Code 62530 INP/OBS DISCH >30 MIN Diagnoses Cellulitis of right hand L03.113 Right forearm cellulitis L03.113 History of gout Z87.39 Alcohol withdrawal F10.230 Complication of substance-induced condition: uncomplicated History of seizure due to alcohol withdrawal Z87.898; Z86.59
--- NOTE | 2025-06-11 12:21 | Infectious Disease Progress Nt ---
Date of Service June 11, 2025 Assessment & Plan (1) Abscess of right hand: (2) Septic finger of right hand: Plan ID Problem List: # R dorsal hand abscess, 3rd PIP and MCP swelling c/f possible septic arthritis, s/p bedside aspiration on 06/08 # EtOH use disorder, EtOH withdrawal Impression: Miguel Núñez is a 59-year-old man with history of PE, s/p colostomy, fatty liver disease, EtOH use disorder with history of alcohol withdrawal seizure, who presents to [facility] on 06/06/25 with R finger and hand pain as well as EtOH withdrawal, found to have a 2.2 x 1.2 x 3.0 cm R dorsal hand abscess s/p bedside aspiration on 06/08 (Cx NGTD) and ongoing R MCP/PIP swelling. ID is consulted for R hand abscess and possible R MCP/PIP septic arthritis. The patient developed redness, swelling, and pain of his R middle finger about ~5 days [employer]. The redness and swelling progressed to involve most of his hand and his R arm. The patient reports that in March 2025, he believes that he may have sustained a spider bite on his R ring finger which became filled with pus, then spontaneously drained then resolved; this was followed by skin sloughing and then resolution. No fevers or chills. He also does have a history of gout but was unable to tolerate allopurinol for maintenance. He drinks 1/2-3/4 of a pint of alcohol a day. Upon arrival, afebrile, WBC 13.7. 06/08 CT R hand showed an 2.2 x 1.2 x 3.0 cm abscess beginning at the level of the dorsum of the third finger at the proximal interphalangeal joint and extending proximally anterior to the 3rd and 4th metacarpal shafts; no osseous abnormality. He underwent bedside aspiration on 06/08 which yielded 4 mL of thick purulent fluid. 06/08 Cx remain NGTD, g/s with no organisms. Given ongoing R 3rd finger MCP and PIP swelling, a repeat aspiration attempt was made on 06/10 at the dorsal R hand around the MCP, but the attempt was unsuccessful and yielded only a small amount of blood in the needle hub. 06/06 BCx remain NGTD. At the time of evaluation, the patient reports that his hand has overall improved, though he still has significant swelling in his R 3rd finger MCP/PIP joints, especially after the unsuccessful aspiration attempt on 06/10. He does not have a prior history of recurrent Staph/MRSA infections to his knowledge. He does not have any hardware/implants in place. Discussion Pt presenting with large dorsal R hand abscess, which has improved significantly with abx and drainage. 06/06 BCx remain NGTD. The bedside aspiration Cx from 06/08 remain NGTD, however the pt had received vancomycin and cefepime ~2d prior to the specimen being obtained, which may have decreased the culture yield. Pt with negative MRSA nares, though this can be discordant from SSTI. Out of caution, given the delicate structures/possible component of R finger septic arthritis, and given the purulent, abscess-forming process, will broaden coverage to include MRSA as well as MSSA/Strep, and also cover for polymicrobial infection as well. Can continue vancomycin and amp/sulb while inpatient. If improving and will be discharging, then if Cx remain NG, can change to doxycycline 100 mg PO BID and amox-clav 875 mg PO BID to complete a 4-week course. Interestingly, pt had a pus-filled boil on his R ring finger in 03/2025, and thus raise the possibility of Staph aureus infection. Pt does not report a history of recurrent Staph infections previously, but out of caution could consider Staph/MRSA decolonization after completion of abx therapy. Recommendations: - Continue IV vancomycin (dosing per Rx) while inpatient - Continue amp/sulbactam 3g IV q6h while inpatient - If improving and will be discharging, if Cx remain NGTD, then can change to doxycycline 100 mg PO BID and amox-clav 875 mg PO BID to complete a 4-week course (through 07/05/25) - F/u 06/08 bedside aspiration Cx until finalized - Ensure close f/u with PCP and orthopedic surgery - After completion of abx treatment as above, would recommend Staph/MRSA decolonization (see below for suggested protocol): Staph/MRSA decolonization protocol Perform decolonization of all household members simultaneously. (1) Nasal decolonization: mupirocin ointment (2%) - Apply twice a day to each nostril (each household member should have a separate one) for 5 days (2) Topical body decolonization: chlorhexidine gluconate (Hibiclens) (2% or 4% solution) washes - Wet body. Turn off water and put Hibiclens all over body from the neck down, with special attention to underarms and groin. Wait 3-5 minutes, then wash off Hibiclens. Do this daily for 5 days. - Bathroom: Daily Clorox bleach to shower/bathroom. - Gym: Ok to go to gym, but wash off equipment before and after use. Do not stay in sweaty clothes; immediately shower after exercise. Do not re-wear sweaty clothes. - Laundry: Wash towels/washcloths/sheets/underwear/sweaty clothes after each use in hot water and color-safe bleach. Do not share towels or washcloths. - Personal hygiene products: Throw out deodorant and razors now. Avoid loofahs. Only use razors for 1 week at a time. If you develop cellulitis (skin infection), get rid of deodorant and razors again. Plan discussed with primary team. Thank you for letting ID participate in the care of this patient. ID will sign off at this time. If questions, please contact the [facility] at [phone]. Lila Kim MD, S Infectious Diseases [facility]/ID Connect ID Connect direct line: [phone] Admission and Anticipated Discharge Date Admission Date: June 06, 2025 Subjective This patient recommendation is based on a telemedicine consult request which was completed asynchronously through chart review and information provided by the primary physician. The patient was not seen or examined today. The evaluation is consultative in nature and all patient care and treatment decisions can either be accepted or rejected by the patient's primary hospital-based treating physician using their own independent medical judgment for their patient. PLEASE NOTE: E-consult was performed for this visit given lack of telepresenter availability. Time Spent Reviewing Chart: 21 - 30 minutes PLEASE NOTE: E-consult was performed for this visit given lack of telepresenter availability. - 06/08 hand aspiration Cx remain NGTD - Afebrile, WBC 7.64 Physical Exam Physical Exam: Diagnostics: 06/08/25 CT R hand 1. 2.2 x 1.2 x 3.0 cm abscess beginning at the level of the dorsum of the third finger at the proximal interphalangeal joint and extending proximally anterior to the 3rd and 4th metacarpal shafts. 2. No acute osseous abnormality. Micro Data: 06/08 R hand Cx (bedside aspiration): NG TD; g/s no organisms 06/07 MRSA nares: neg 06/06 BCx x2: NGTD Antibiotic Summary: vancomycin (06/06, 06/10 present) amp/sulb (06/10 present) prior ceftriaxone (06/06 06/09) cefepime (06/06) Results & Data Vital Signs (Past 12 Hours) Vital Signs Temp Pulse Resp BP Pulse Ox O2 Del Method 06/11/25 11:41 36.7 C 53 L 18 152/78 H 99 Room Air 06/11/25 08:32 36.6 C 51 L 23 160/81 H 97 Room Air 06/11/25 03:02 36.8 C 55 L 16 146/69 H 98 Room Air Laboratory Results Diagnostics: 06/08/25 CT R hand 1. 2.2 x 1.2 x 3.0 cm abscess beginning at the level of the dorsum of the third finger at the proximal interphalangeal joint and extending proximally anterior to the 3rd and 4th metacarpal shafts. 2. No acute osseous abnormality. Micro Data: 06/08 R hand Cx (bedside aspiration): NGTD; g/s no organisms 06/07 MRSA nares: neg 06/06 BCx x2: NGTD Antibiotic Summary: vancomycin (06/06, 06/10 present) amp/sulb (06/10 present) prior ceftriaxone (06/06 06/09) cefepime (06/06)
[2025-06-11 13:25] VITALS: BP 162/87; PULSE 60
[2025-06-12] MEDS ORDERED: VANCOMYCIN LEVEL ONE (07:00)
== END 2025-06-11 13:58 | disposition home or self-care (01) | DRG 603 ==
LOC: SUATTDRO → ED 16:43 → SUATTDRO 20:33 → 2S 20:33